=== PATIENT | female | born 1940 | race Caucasian/White ===

== ENCOUNTER → 2018-02-26 16:12 | Outpatient (CLI) | payer MEDICARE, SELFPAY ==
[2018-02-26 16:58] LABS: Add Manual Diff / Slide Review NO; Basophils Percent Auto 0.3 % (0-2); Eosinophils Percent Auto 1.3 % (2-4); Hematocrit 40.5 % (36-46); Lymphocytes Percent Auto 31.5 % (25-40); Mean Corpuscular HGB Conc 34.7 % (30-36); Mean Corpuscular Hemoglobin 33.1 PG (26-34); Mean Corpuscular Volume 95.2 fL (80-100); Neutrophils Absolute Auto 2800 /uL (3000-5900); Neutrophils Percent Auto 59.9 % (50-75); Platelet Count 236 X10^3/uL (150-400); Red Blood Cell Count 4.25 X10^6/uL (4.0-5.2); Red Cell Distribution Width 12.3 % (11.6-14.8); White Blood Cell Count 4.7 X10^3/uL (4.5-11.0)
[2018-02-26 17:25] LABS: Alanine Aminotransferase 34 IU/L (9-52); Albumin 4.2 g/dL (3.5-5.0); Albumin Globulin Ratio 1.6 (1.0-2.8); Alkaline Phosphatase 67 U/L (38-126); Aspartate Aminotransferase 30 IU/L (14-36); Bilirubin Total 0.3 mg/dL (0.2-1.3); Blood Urea Nitrogen 13 mg/dL (7-17); Calcium 9.5 mg/dL (8.4-10.2); Carbon Dioxide 32 mmol/L (22-32); Chloride 98 mmol/L (98-107); Estimated Glomerular Filt Rate > 60.0 mL/min (>60); Globulin 2.7 g/dL (1.7-4.1); Glucose 107 mg/dL (80-110); HEMOLYSIS 18 (0-50); Potassium 3.8 mmol/L (3.4-5.1); Sodium 140 mmol/L (137-145); Total Protein 6.9 g/dL (6.3-8.2)
[2018-02-26 17:26] LABS: C-Reactive Protein Quant < 0.5 mg/dL (<1.0)
[2018-02-26 17:36] LABS: Free T4, Direct Thyroxine 0.95 ng/dL (0.78-2.19)
[2018-02-26 17:50] LABS: Thyroid Stimulating Hormone 2.48 uIU/mL (0.47-4.68)
[2018-02-26 18:26] LABS: Erythrocyte Sedimentation Rate 6 MM/HR (0-20)
== END ==
PROVIDERS: Family Provider Internal Medicine; PCP Internal Medicine; Visit Provider Internal Medicine
DX: E03.9 Hypothyroidism, unspecified (principal); R53.1 Weakness
CPT/HCPCS: 36415; 80053; 84439; 84443; 85025; 85651; 86140

== ENCOUNTER → 2018-03-04 08:09 | Outpatient (CLI) | payer MEDICARE, SELFPAY ==
--- NOTE | 2018-03-04 08:12 | DI.MRI.S_ITS ---
PROCEDURE: MR STROKE Pre- and post-contrast brain MRI, non-contrast brain MR angiogram, pre- and postcontrast neck MR angiogram INDICATIONS: TRANSIENT ISCHEMIC CEREBRAL ATTACK/WEAKNESS TECHNIQUE: Brain: Noncontrast axial T1 spin echo, axial T2 fast spin echo, sagittal and axial FLAIR, coronal T2 fast spin echo, axial gradient echo, axial diffusion and ADC through the brain. After the administration of contrast, axial 3D VIBE of the cranial vasculature and brain. Brain MRA: Non-contrast 3-D time of flight MR angiogram, with multiple onrmsky-atdhidskr-uxopmhwkap (MIP) reformats performed. Neck MRA: Axial and sagittal TruFISP through the neck. Coronal dynamic MR angiogram during administration of contrast in the arterial and venous phases, with 3-dimenstional rcjgxyv-uucnjklgg-dvzkqbkjeu (MIP) reformats constructed from subtraction images. COMPARISON: [facility], CT, HEAD WITHOUT CONTRAST, 03/22/2014, 8:17. [facility], US, CAROTID ARTERY DOPPLER BILAT, 03/22/2014, 8:32. [facility], MR, ANGIO HEAD WITHOUT CONTRAST, 06/05/2014, 14:30. [facility], MR, BRAIN WITHOUT CONTRAST, 06/05/2014, 14:45. FINDINGS: Image quality: Limited by patient motion. BRAIN: CSF spaces: Ventricles are normal in size and shape. Basal cisterns are patent. No extra-axial fluid collections. Brain: No intracranial bleeds or mass effects. Dooley-white matter interface is normal. Diffusion weighted images show no acute ischemic insults. Prominent perivascular spaces noted in the base of the putamen bilaterally. Mild, diffuse prominence of CSF space noted. Prominence of the ventricular system slightly out of proportion to prominence of the sulci which could be due to central volume loss versus normal pressure hydrocephalus. Punctate and confluent areas of increased T2 signal noted in the periventricular and subcortical white matter tracts compatible with chronic microvascular ischemic changes. Numerous, punctate foci of GRE weighted hypointensity noted in the parietal lobes, the occipital lobes, temporal lobes and the yves (right greater than left) compatible with chronic petechial hemorrhage likely secondary to either hypertensive micro-bleeds or amyloid angiopathy. Brainstem appears normal. Normal intravascular flow voids are present. No abnormal intracranial enhancement. Skull and face: Calvarial marrow signal is normal. Orbits appear normal. Sinuses: Mild mucosal thickening noted in the right sphenoid sinus. Minimal fluid signal noted in the left mastoids. Right mastoids are clear.. BRAIN MR ANGIOGRAM: Anterior circulation: Intracranial internal carotid arteries are normal in size and enhancement. The flow within the paired anterior cerebral arteries is normal and symmetric. The flow within the middle cerebral arteries is normal and symmetric. The anterior communicating artery is seen. No stenoses, occlusions, or aneurysms. Posterior circulation: The visualized portions of the vertebral arteries demonstrate normal caliber, and join to form a normal appearing basilar artery. The flow within the posterior cerebral arteries is normal and symmetric. No stenoses, occlusions, or aneurysms. NECK MR ANGIOGRAM: Carotids: Great vessels demonstrate a conventional anatomy as they arise from the aortic arch. The origins of the common carotid arteries appear patent. The calibers and courses of both common carotid arteries are normal. The bifurcation regions appear normal bilaterally. The internal carotid arteries demonstrate normal course and caliber. Posterior circulation: The origins of the vertebral arteries appear patent. More superior portions of both vertebral arteries demonstrate normal course and caliber, and join to form a normal appearing basilar artery. Miscellaneous: Subclavian arteries appear patent. Pre-contrast images through the neck show no soft tissue abnormalities. IMPRESSION: BRAIN MRI: 1. No acute intracranial disease process. 2. No areas of acute or chronic infarction. 3. Multiple punctate GRE weighted hypointensities in the cerebral hemispheres, right greater than left and in the yves concerning for chronic petechial hemorrhages likely related hypertension mitral bleeds or cerebral amyloid angiopathy. Please correlate with clinical data. 4. Ventriculomegaly was related to central volume loss versus normal pressure hydrocephalus. Please correlate clinically. 5. Moderate periventricular and subcortical white matter chronic microvascular ischemic changes. BRAIN MR ANGIOGRAM: Negative examination. NECK MR ANGIOGRAM: Negative examination. Dictated by: Camila Taveras MD, PhD on 03/04/2018 at 10:25 Approved by: Camila Taveras MD, PhD on 03/04/2018 at 10:40
== END ==
PROVIDERS: Family Provider Internal Medicine; PCP Internal Medicine; Visit Provider Internal Medicine
DX: G45.9 Transient cerebral ischemic attack, unspecified (principal); R53.1 Weakness; G93.89 Other specified disorders of brain
CPT/HCPCS: 70553; A9579

== ENCOUNTER → 2018-05-11 08:36 | Outpatient (CLI) | payer MEDICARE, SELFPAY ==
[2018-05-11 11:46] LABS: Vitamin B12 995 pg/mL (239-931)
[2018-05-17 15:43] LABS: Rapid Plasma Reagin NON REACTIVE
== END ==
PROVIDERS: Family Provider Internal Medicine; PCP Internal Medicine; Visit Provider Specialist
DX: F03.90 Unspecified dementia, unspecified severity, without behavioral disturbance, psychotic disturbance, mood disturbance, and anxiety (principal)
CPT/HCPCS: 36415; 82607; 86592

== ENCOUNTER → 2018-07-20 09:18 | Outpatient (CLI) | payer MEDICARE, SELFPAY ==
[2018-07-20 11:24] LABS: Erythrocyte Sedimentation Rate 7 MM/HR (0-20)
[2018-07-20 12:39] LABS: Vitamin B12 913 pg/mL (239-931)
[2018-07-22 13:05] LABS: RPR Screen Nonreactive (Nonreactive)
== END ==
PROVIDERS: Family Provider Internal Medicine; PCP Internal Medicine; Visit Provider Specialist
DX: F03.90 Unspecified dementia, unspecified severity, without behavioral disturbance, psychotic disturbance, mood disturbance, and anxiety (principal)
CPT/HCPCS: 36415; 82607; 85651; 86592

== ENCOUNTER → 2018-11-16 18:05 | Outpatient (CLI) | payer MEDICARE, SELFPAY ==
--- NOTE | 2018-11-16 | DI.MRI.S_ITS ---
PROCEDURE: MR LUMBAR SPINE WO CON INDICATIONS: DEMENTIA SPINAL CORD INJURY TECHNIQUE: Noncontrast sagittal T1 spin echo and T2 fast echo, sagittal STIR, axial T1 and T2 fast spin echo through the lumbar spine. In cases with scoliosis, additional coronal T2 fast spin echo may be performed. COMPARISON: None. FINDINGS: Image quality: Excellent. Alignment and Curvature: There is a mild to moderate degree of abnormal bony alignment, associated with ligamentous laxity related to discogenic reduction and facet osteoarthritis. There is mild grade 1 retrolisthesis of L1 on L2 and mild to moderate such retrolisthesis of L2 on L3. Mild L3 on L4 retrolisthesis also is present. Bone Marrow: Marrow is of normal overall signal. No acute vertebral body compression fractures. Spinal Cord: Conus medullaris terminates at the L1 level. Visualized cord demonstrates normal signal and size. Paraspinous Soft Tissues: No paravertebral masses. T12-L1: Mild to moderate degenerative disc height reduction, with a posterior broad-based disc bulge that produces mild effacement of the anterior CSF within the thecal sac, but does not distort the adjacent cord significantly. This disc bulge is slightly greater on the left than the right with a small degree of left foraminal stenosis. A definite impingement on the course of the left T12 nerve root is not found, however. L1-L2: Moderate degenerative disc height reduction, small posterior disc bulge. This transverse disc bulge effaces CSF only to a slight degree along the anterior spinal canal, and significant spinal stenosis is not associated. Facet osteoarthritis is greater on the left than the right and there is mild left and minimal right foraminal stenosis with potential for slight impingement on the course of the left L1 nerve root. Mild retrolisthesis of L1 on L2, Grade I, is associated. L2-L3: Degenerative disc disease at this level is moderately severe with moderate grade 1 retrolisthesis of L2 on L3. Facet osteoarthritis is moderately severe at this level, slightly greater on the left than the right, and there is moderate bilateral foraminal stenosis slightly greater on the left, with likelihood of bilateral L2 left greater than right nerve root impingement. Mild to moderate concentric spinal stenosis is associated. L3-L4: Moderately severe degenerative disc disease with a broad-based posterior transverse disc bulge. There is severe facet osteoarthritis is present, in addition to ligamentum flavum hypertrophy. This results in concentric severe spinal stenosis grade bilateral severe foraminal stenosis also is present with symmetric impingement on the course of the L3 nerve roots equally. L4-L5: Mild degenerative disc height reduction, slight posterior broad-based disc bulge. Moderately severe facet osteoarthritis, mild to moderate ligamentum flavum hypertrophy. Mild to moderate foraminal stenosis can be seen, right slightly greater than left, with potential for impingement on the course of the L4 nerve roots., L5-S1: Moderately severe degenerative disc disease, small posterior broad-based disc bulge. Moderately severe facet osteoarthritis, slightly greater on the left than the right. There is significant foraminal stenosis, moderately severe bilaterally. Impingement on the course of the L5 nerve roots would be expected. IMPRESSION: Multilevel degenerative disc disease and facet osteoarthritis as discussed in detail by level in the body of report above. The most prominent degree of spinal stenosis is found at L3-4 where severe spinal stenosis and severe bilateral foraminal stenosis can be seen. Disc height reduction and ligamentous laxity from facet osteoarthritis is present in this patient allowing grade 1 retrolisthesis of L1 on L2 and L2 on L3 and to a slight degree L3 on L4. Overall, no disc herniation is seen and no prior trauma is found. Dictated by: Dominguez Del Valle M.D. on 11/17/2018 at 10:21 Approved by: Dominguez Del Valle M.D. on 11/17/2018 at 10:46
--- NOTE | 2018-11-16 | DI.MRI.S_ITS ---
PROCEDURE: MR THORACIC SPINE WO CON INDICATIONS: DEMENTIA. SPINAL CORD INJURY TECHNIQUE: Noncontrast sagittal T1 spine echo and T2 fast spin echo, sagittal STIR, axial T1 and T2 fast spin echo through the thoracic spine. COMPARISON: [facility], MR, C-SPINE WITHOUT CONTRAST, 04/30/2015, 16:53. [facility], MR, BRAIN WITHOUT CONTRAST, 06/05/2014, 14:45. [facility], CT, HEAD WITHOUT CONTRAST, 03/22/2014, 8:17. [facility], CR, L-SPINE 2-3 VIEWS, 03/29/2013, 10:24. FINDINGS: Image quality: / Alignment and Curvature: There is normal bony alignment. Bone Marrow: Marrow is of normal overall signal. No acute vertebral body compression fractures. Spinal Cord: Visualized spinal cord is normal in size and signal. Along the thoracic spine there is mild degenerative disc disease, with only small posterior transverse disc bulges, and impingement on the adjacent cervical cord. The degenerative disc bulging is most prominent at T12-L1, left greater than right, where mild left-sided foraminal stenosis is associated. Paraspinous Soft Tissues: No paravertebral masses. Miscellaneous: On axial images, central canal and foramina appear widely patent at all scanned levels. IMPRESSION: A focus of spinal cord injury is not seen. 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 Mild degenerative disc disease along the thoracic spine, most prominent at T12-L1, left greater than right, with potential for mild impingement on the course of the T12 nerve root on the left. No definite acute disease. Dictated by: Dominguez Del Valle M.D. on 11/17/2018 at 10:11 Approved by: Dominguez Del Valle M.D. on 11/17/2018 at 10:21
--- NOTE | 2018-11-16 18:09 | DI.MRI.S_ITS ---
PROCEDURE: MR CERVICAL SPINE WO CON INDICATIONS: DEMENTIA SPINAL CORD INJURY TECHNIQUE: Noncontrast sagittal T1 spin echo and T2 fast spin echo, sagittal STIR, foraminal oblique sagittal T2 fast spin echo, and axial gradient echo or T2 fast spin echo through the cervical spine. COMPARISON: [facility], , C-SPINE WITHOUT CONTRAST, 04/30/2015, 16:53. FINDINGS: Image quality: Excellent. Alignment and Curvature: Chronic osseous fusion of the C4-C5, C5-C6 vertebral bodies as before. There is associated straightening of the normal cervical lordosis. Bone Marrow: Diffuse endplate degenerative spurring and signal change Spinal Cord: Visualized spinal cord has normal size and signal. No cerebellar tonsillar herniation. Paraspinous Soft Tissues: No paravertebral masses. Prevertebral soft tissues are normal in thickness. C2-C3: Normal appearance. C3-C4: Mild canal narrowing. Moderate left and right foraminal stenoses although no definite interval change. C4-C5: No high-grade residual canal stenosis. Mild left and right foraminal narrowing. C5-C6: No residual high-grade canal stenosis. Mild to moderate right and left foraminal stenoses which is slightly progressed on both sides C6-C7: Mild/moderate unchanged central canal narrowing. Severe bilateral foraminal stenoses, which is probably unchanged although less well-visualized compared to prior study. C7-T1: Normal appearance. 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 No residual high-grade canal stenosis. [id number] unchanged C6-C7 canal narrowing Mild to moderate bilateral foraminal narrowing at C5-C6 which appears progressed since prior study. Severe bilateral C6-C7 foraminal stenoses probably unchanged although not well evaluated. Unchanged moderate bilateral C3-C4 foraminal stenoses. Dictated by: Sher Magallon M.D. on 11/17/2018 at 13:57 Approved by: Sher Magallon M.D. on 11/17/2018 at 14:06
== END ==
PROVIDERS: Family Provider Internal Medicine; PCP Internal Medicine; Visit Provider Internal Medicine Endocrinology, Diabetes & Metabolism
DX: M54.5 Low back pain (principal); G95.89 Other specified diseases of spinal cord; F03.90 Unspecified dementia, unspecified severity, without behavioral disturbance, psychotic disturbance, mood disturbance, and anxiety; M51.34 Other intervertebral disc degeneration, thoracic region; M51.36 Other intervertebral disc degeneration, lumbar region; M51.37 Other intervertebral disc degeneration, lumbosacral region; M48.02 Spinal stenosis, cervical region; M48.04 Spinal stenosis, thoracic region; M48.061 Spinal stenosis, lumbar region without neurogenic claudication; M48.07 Spinal stenosis, lumbosacral region; M47.816 Spondylosis without myelopathy or radiculopathy, lumbar region; M47.817 Spondylosis without myelopathy or radiculopathy, lumbosacral region; M43.22 Fusion of spine, cervical region
CPT/HCPCS: 72141; 72146; 72148

== ENCOUNTER 2019-03-25 13:24 | Outpatient (RCR) | payer MEDICARE, SELFPAY ==
--- NOTE | 2019-03-25 14:30 | PT.OPPOC ---
Current Diagnoses Benign paroxysmal vertigo, right ear (03/25/19) Unspecified abnormalities of gait and mobility (03/25/19) Repeated falls (03/25/19) Dizziness and giddiness (03/25/19) History of falling (03/25/19) Provider Visit Care Team Role Provider Type Aleks Fraser MD Primary Care Provider Physician Specialty: Internal Medicine Address: [address] [place] [address], [id number] Email: [email or web address] Mikey Sue MD Attending Provider Non-Staff Specialty: Neurology Address: [address] [place] [address], [id number] Email: Plan Of Care PT-OP-T Assessment and Plan Start: 03/28/19 09:33 Freq: Status: Active Protocol: Document 03/25/19 13:45 DCW (Rec: 03/28/19 10:00 DCW [id number]) Physical Therapy Assessment Rehab Potential Rehabilitation Potential Good Evaluation Complexity Number of Personal Factors/Comorbidities 1-2 Number of Body Systems Impaired 4 or More Clinical Presentation at Evaluation Unstable Impairments Impairments Activity Tolerance Balance Coordination Functional Mobility Vestibular Other Concerns Fall Risk Yes, per falls history Barriers to Rehabilitation Dementia, possible Dx of Hydrocephaly, inablilty of pt to keep eyes open during vertigo for DDx Goals One Impairment Pt experiences vertigo with position changes in bed Short Term Goal (STG) Pt to change positions in bed for one week without any complaints of vertigo or dizziness STG Duration 04/24/19 Assessment Summary Assessment During right [place]-Hallpike test , pt complained of vertigo lasting approximately 5 seconds, however was unwilling or unable to open her eyes during the spinning, making proper diagnosis difficult. Her symptoms are most likely consistent with diagnosis of right-sided posterior canal BPPV, canalithiasis-type. Pt was treated with a right-sided Yannick maneuver. Pt complained of symptoms in the first and third position, which is normally indicative of a successful treatment. Pt and her were educated on BPPV and expectations for treatment. Pt also has very obvious balance and gait deficits, and when she was walking back to the treatment room from the waiting area, had a significant forward lean which caused her to stop multiple times to try to stand up straighter before she tipped over. Patient and were also informed of possible balance testing and retraining that Physical Therapy would be able to work on, however they are unsure at this time if they are interested, and seem to be convinced that all her problems are from her possible hydrocephaly, and would prefer to have that addressed before committing to balance rehabilitation. Pt to return in ~1 week for a follow-up appointment, and intermittently afterward as indicated for treatment of BPPV. Physical Therapy Plan Frequency and Duration Frequency of Treatment 1x/Week Duration of Treatment 6 weeks Plan of Care Start Date 03/25/19 Plan of Care End Date 05/06/19 Therapeutic Interventions Therapeutic Interventions Balance Training Canalithic Repositioning Neuromuscular Re-education Vestibular Rehabilitation Next Visit Focus/Plan Next Note Type Treatment Note Next Visit Plan Positional retesting, CRM as indicated, possible balance testing and training Plan of Care Dates Plan of Care Start Date 03/25/19 Plan of Care End Date 05/06/19 Please Sign and Return: I have reviewed this Plan of Care and certify that the skilled therapy services above are required to meet the patient?s needs. Physician Signature Date Printed Name and Credentials Clinical Instructor Signature Printed Name and Credentials
--- NOTE | 2019-03-25 14:30 | PT.OIE ---
Current Diagnoses Benign paroxysmal vertigo, right ear (03/25/19) Unspecified abnormalities of gait and mobility (03/25/19) Repeated falls (03/25/19) Dizziness and giddiness (03/25/19) History of falling (03/25/19) Past Medical History (Last Reviewed 04/22/18 @ 17:45 by Aleks Fraser MD) Cervical spine disease (Chronic) Chronic back pain (Chronic) Hyperlipidemia (Chronic 03/11/12) Osteoporosis (Chronic 03/29/13) Trigeminal neuralgia (Chronic 03/29/13) Acquired hypothyroidism (Chronic 05/12/16) Abnormal gait (Chronic 05/12/16) Past Surgical History (Last Reviewed 04/22/18 @ 17:45 by Aleks Fraser MD) Status post hysterectomy (~1969) History of bilateral salpingo-oophorectomy (BSO) (~01/2006) Status post appendectomy History of bladder suspension procedure History of spinal fusion Anesthesia (Resolved) Provider Visit Care Team Role Provider Type Aleks Fraser MD Primary Care Provider Physician Specialty: Internal Medicine Address: [address] [place] [address], [id number] Email: [email or web address] Mikey Sue MD Attending Provider Non-Staff Specialty: Neurology Address: [address] [place] [address], [id number] Email: Physical Therapy Initial Evaluation PT-OP-A Visit Information Start: 03/28/19 09:33 Freq: Status: Active Protocol: Document 03/25/19 13:45 DCW (Rec: 03/28/19 10:00 [facility] [id number]) Out-Patient Physical Therapy Visit Information Visit Information Visit Type Initial Evaluation Visit Start Time 13:45 Visit Stop Time 14:30 Total Visit Minutes 45 Visit Number 1 Number of EDGE RUNNER Visits 0 Evaluation Information Evaluation Date 03/25/19 PT-OP-B Current Condition Start: 03/28/19 09:33 Freq: Status: Active Protocol: Document 03/25/19 13:45 DCW (Rec: 03/28/19 10:00 DC [id number]) Current Condition History of Current Condition Onset Date one year Current Complaints vertigo/dizziness when sitting up or lying down in bed History of Current Condition Pt is a 78 year old female complaining of a one year history of motion-induced vertigo, as well as generalized decline of functional gait and balance. Pt reports vertiginous episodes last seconds. Symptoms are provoked by sitting up or lying down in bed. Pt denies recent hearing changes, although notes she has recently acquired hearing aides, and also denies tinnitus, diplopia, or dysarthria. Pt has also recently been diagnosed with the beginning stages of dementia, and per medical notes in her chart, may be suffering from hyrdocephalus, although that is unclear at this time. Pt has been having multiple falls, even with using her walker. Pt reports symptoms are waxing/waning in nature. Pt denies hx of HTN, diabetes, arrhythmia, head trauma, seizure, back/neck problems, CVA, or excessive smoking or drinking. Treatment Goals Patient/Caregiver Goals Eliminate position-dependent vertigo and improve balance Prior Functional Status Baseline Function- ADL's Modified Independent Baseline Function- Mobility Modified Independent Current Functional Impairments (Reported) Functional Limitations- ADL's Rotational vertigo with position changes in bed Functional Limitations- Mobility/Gait Multiple falls PT-OP-C Subjective Start: 03/28/19 09:33 Freq: Status: Active Protocol: Document 03/25/19 13:45 DCW (Rec: 03/28/19 10:00 DCW [id number]) OP-PT Subjective Patient Comments Patient Comments Pt reports symptoms seems to come and go Patient Reported Progress Same Patient Questionnaires ABC- Activity Specific Balance Confidence Scale ABC Score 71.25% ABC Functional Impairment 20 to <40% Impaired (Score 61- 80) Dizziness Handicap Inventory DHI Score 62% DHI Functional Impairment 60 to 79% Impaired (Score 60- 79) PT-OP-O Vestibular Start: 03/28/19 09:33 Freq: Status: Active Protocol: Document 03/25/19 13:45 DCW (Rec: 03/28/19 10:00 PAW [id number]) Vestibular Assessment Screening Tests Vestibular Artery Screen Negative Sharp-Shaunna Test Negative Auditory Tests Corcoran Test Negative Rinne Test Negative Air Conduction Results Equal Visual Testing Smooth Pursuits Horizontal WNL Smooth Pursuits Vertical WNL Saccades Horizontal WNL Gaze Evoked Nystagmus With Fixation Negative Gaze Evoked Nystagmus Without Fixation Negative Heave Test Negative Thrust Head Negative Positional Testing Robert-Hallpike Positive Right Negative Left Rolling Test Negative Left Negative Right Supine to Sit Negative Sit to Supine Negative Comments Vestibular Comments Right Hallpike likely negative , pt complained of dizziness, however squeezed eyes tight during any potential nystagmus , limiting ability of therapist to properly diagnose . PT-OP-Q Treatments Start: 03/28/19 09:33 Freq: Status: Active Protocol: Document 03/25/19 13:45 DCW (Rec: 03/28/19 10:00 DCW [id number]) Canalithic Repositioning BPPV Treatment Yannick Affected Canal(s) Right posterior? Reps x2 PT-OP-T Assessment and Plan Start: 03/28/19 09:33 Freq: Status: Active Protocol: Document 03/25/19 13:45 DCW (Rec: 03/28/19 10:00 DCW [id number]) Physical Therapy Assessment Rehab Potential Rehabilitation Potential Good Evaluation Complexity Number of Personal Factors/Comorbidities 1-2 Number of Body Systems Impaired 4 or More Clinical Presentation at Evaluation Unstable Impairments Impairments Activity Tolerance Balance Coordination Functional Mobility Vestibular Other Concerns Fall Risk Yes, per falls history Barriers to Rehabilitation Dementia, possible Dx of Hydrocephaly, inability of pt to keep eyes open during vertigo for DDx Goals One Impairment Pt experiences vertigo with position changes in bed Short Term Goal (STG) Pt to change positions in bed for one week without any complaints of vertigo or dizziness STG Duration 04/24/19 Assessment Summary Assessment During right [place]-Hallpike test , pt complained of vertigo lasting approximately 5 seconds, however was unwilling or unable to open her eyes during the spinning, making proper diagnosis difficult. Her symptoms are most likely consistent with diagnosis of right-sided posterior canal BPPV, canalithiasis-type. Pt was treated with a right-sided Yannick maneuver. Pt complained of symptoms in the first and third position, which is normally indicative of a successful treatment. Pt and her were educated on BPPV and expectations for treatment. Pt also has very obvious balance and gait deficits, and when she was walking back to the treatment room from the waiting area, had a significant forward lean which caused her to stop multiple times to try to stand up straighter before she tipped over. Patient and were also informed of possible balance testing and retraining that Physical Therapy would be able to work on, however they are unsure at this time if they are interested, and seem to be convinced that all her problems are from her possible hydrocephaly, and would prefer to have that addressed before committing to balance rehabilitation. Pt to return in ~1 week for a follow-up appointment, and intermittently afterward as indicated for treatment of BPPV. Physical Therapy Plan Frequency and Duration Frequency of Treatment 1x/Week Duration of Treatment 6 weeks Plan of Care Start Date 03/25/19 Plan of Care End Date 05/06/19 Therapeutic Interventions Therapeutic Interventions Balance Training Canalithic Repositioning Neuromuscular Re-education Vestibular Rehabilitation Next Visit Focus/Plan Next Note Type Treatment Note Next Visit Plan Positional retesting, CRM as indicated, possible balance testing and training
--- NOTE | 2019-04-04 10:04 | PT-OP ANOTE ---
Pt's phoned the clinic and left a voicemail, stating that pt has been worse since her evaluation, with much worsened dizziness and frequent headaches. Phone call was returned, and therapist and pt's discussed pt's current condition. Apparently, pt also suffered a fall recently, cutting her leg on a shovel, and they are both unsure if they would like to continue therapy. Therapist explained that although pt's symptoms were suggestive of BPPV, testing was somewhat inconclusive due to pt's inability to keep her eyes open, and with worsening symptoms, it would be gregory to return to her PCP, due to pt's concerns of hydrocephaly.
--- NOTE | 2019-05-18 16:13 | PT.OPDS ---
Current Diagnoses Benign paroxysmal vertigo, right ear (03/25/19) Unspecified abnormalities of gait and mobility (03/25/19) Repeated falls (03/25/19) History of falling (03/25/19) Provider Visit Care Team Role Provider Type Aleks Fraser MD Primary Care Provider Physician Specialty: Internal Medicine Address: [address] [place] [address], [facility] [address], [place], [address] Email: [email or web address] Mikey Sue MD Attending Provider Non-Staff Specialty: Neurology Address: [address] [place] [address], [id number] Email: Visit Number Visit Number 1 Discharge Summary PT-OP-B Current Condition Start: 03/28/19 09:33 Freq: Status: Active Protocol: Document 03/25/19 13:45 DCW (Rec: 03/28/19 10:00 DCW [id number]) Current Condition History of Current Condition Onset Date one year Current Complaints vertigo/dizziness when sitting up or lying down in bed History of Current Condition Pt is a 78 year old female complaining of a one year history of motion-induced vertigo, as well as generalized decline of functional gait and balance. Pt reports vertiginous episodes last seconds. Symptoms are provoked by sitting up or lying down in bed. Pt denies recent hearing changes, although notes she has recently acquired hearing aides, and also denies tinnitus, diplopia, or dysarthria. Pt has also recently been diagnosed with the beginning stages of dementia, and per medical notes in her chart, may be suffering from hyrdocephalus, although that is unclear at this time. Pt has been having multiple falls, even with using her walker. Pt reports symptoms are waxing/waning in nature. Pt denies hx of HTN, diabetes, arrhythmia, head trauma, seizure, back/neck problems, CVA, or excessive smoking or drinking. Treatment Goals Patient/Caregiver Goals Eliminate position-dependent vertigo and improve balance Prior Functional Status Baseline Function- ADL's Modified Independent Baseline Function- Mobility Modified Independent Current Functional Impairments (Reported) Functional Limitations- ADL's Rotational vertigo with position changes in bed Functional Limitations- Mobility/Gait Multiple falls PT-OP-C Subjective Start: 03/28/19 09:33 Freq: Status: Active Protocol: Document 03/25/19 13:45 DCW (Rec: 03/28/19 10:00 DCW [id number]) OP-PT Subjective Patient Comments Patient Comments Pt reports symptoms seems to come and go Patient Reported Progress Same Patient Questionnaires ABC- Activity Specific Balance Confidence Scale ABC Score 71.25% ABC Functional Impairment 20 to <40% Impaired (Score 61- 80) Dizziness Handicap Inventory DHI Score 62% DHI Functional Impairment 60 to 79% Impaired (Score 60- 79) PT-OP-O Vestibular Start: 03/28/19 09:33 Freq: Status: Active Protocol: Document 03/25/19 13:45 DCW (Rec: 03/28/19 10:00 DCW [id number]) Vestibular Assessment Screening Tests Vestibular Artery Screen Negative Sharp-Shaunna Test Negative Auditory Tests Corcoran Test Negative Rinne Test Negative Air Conduction Results Equal Visual Testing Smooth Pursuits Horizontal WNL Smooth Pursuits Vertical WNL Saccades Horizontal WNL Gaze Evoked Nystagmus With Fixation Negative Gaze Evoked Nystagmus Without Fixation Negative Heave Test Negative Thrust Head Negative Positional Testing Drifting-Hallpike Positive Right Negative Left Rolling Test Negative Left Negative Right Supine to Sit Negative Sit to Supine Negative Comments Vestibular Comments Right Hallpike likely negative , pt complained of dizziness, however squeezed eyes tight during any potential nystagmus , limiting ability of therapist to properly diagnose . PT-OP-T Assessment and Plan Start: 03/28/19 09:33 Freq: Status: Active Protocol: Document 05/18/19 16:11 DCW (Rec: 05/18/19 16:13 DCW [id number]) Physical Therapy Assessment Assessment Summary Assessment Per Admin note on 04/04/19: Pt' s phoned the clinic and left a voicemail, stating that pt has been worse since her evaluation, with much worsened dizziness and frequent headaches. Phone call was returned, and therapist and pt's discussed pt' s current condition. Apparently, pt also suffered a fall recently, cutting her leg on a shovel, and they are both unsure if they would like to continue therapy. Therapist explained that although pt's symptoms were suggestive of BPPV, testing was somewhat inconclusive due to pt's inability to keep her eyes open, and with worsening symptoms, it would be gregory to return to her PCP, due to pt's concerns of hydrocephaly. Since this time, pt has not scheduled any appointments, and will be discharge from skilled therapy. Pt will require a new referral in order to return to vestibular therapy. Physical Therapy Plan Discharge Physical Therapy Discharge Reasons No Longer Attending PT Next Visit Focus/Plan Next Note Type Discharge Summary
== END 2019-05-20 09:40 | disposition home or self-care (01) ==
LOC: PHYS 13:24
PROVIDERS: PCP Internal Medicine; Visit Provider Specialist
DX: R26.9 Unspecified abnormalities of gait and mobility (principal); H81.11 Benign paroxysmal vertigo, right ear; R29.6 Repeated falls; Z91.81 History of falling
CPT/HCPCS: 95992; 97162

== ENCOUNTER 2019-04-02 15:07 | Emergency (ER) | payer MEDICARE, SELFPAY ==
[2019-04-02 15:22] VITALS: BP 130/87; PULSE 71; RESP 20; TEMP 37.1; O2SAT 98; BMI 24.0
[2019-04-02] MEDS: LIDOCAINE/PRILOCAINE 5 GM TOP (18:40)
[2019-04-02] MEDS: TET,DIPH,PERTUSS(ACELL),VAC/PF 0.5 ML SYRINGE IM (18:40)
--- NOTE | 2019-04-02 18:46 | ED_ITS ---
HPI - Wound/Laceration <BAIMAEL De La Cruz - Last Filed: 04/02/19 19:32> General Chief Complaint: Wound/Laceration Stated Complaint: fall, wound to lower right leg Time Seen by Provider: 04/02/19 17:31 Source: patient and family Mode of arrival: ambulatory Limitations: no limitations History of Present Illness HPI narrative: The patient is a 78-year-old female with severe dementia who p resents with her for chief complaint of laceration to her right leg. It is her right lower leg. Tetanus is unknown. Patient's states that she stepped hit accidentally cut the back of her leg with a shovel. She states she has full range of motion. Her tried to clean it out, but decided that the wound was too big to take care of at home. Related Data Home Medications Medication Instructions Recorded Confirmed LEVOTHYROXINE SODIUM (Synthroid) 75 mcg PO Q DAY #0 04/28/10 04/22/18 [FLAXSEED OIL] Q DAY #0 04/28/10 04/22/18 VITAMIN B COMPLEX ([id number]) 1 cap PO Q DAY #0 03/11/12 04/22/18 ascorbic acid (vitamin C) 500 mg PO QDAY #90 tab 05/12/16 04/22/18 calcium carbonate-vitamin D3 1 tab QDAY #0 tab 05/12/16 04/22/18 [Oyster Shell Calcium-Vit D3] ginkgo biloba 120 mg PO #0 05/12/16 04/22/18 hydrocodone-acetaminophen [Mariposa] 1 tab PO Q6HP PRN #0 05/12/16 04/22/18 peg 400-propylene glycol (PF) 1 ea OP #0 05/12/16 04/22/18 [Systane (PF)] Previous Rx's Medication Instructions Recorded carbamazepine 200 mg PO BID #180 tab 05/15/16 Allergies Allergy/AdvReac Type Severity Reaction Status Date / Time adhesive tape AdvReac Mild Rash Verified 04/22/18 15:22 Review of Systems <ABIMAEL De La Cruz - Last Filed: 04/02/19 19:32> Review of Systems GENERAL: Denies chills, fatigue, malaise, fever, sweats. HEENT: Denies sinus pain, ear pain, sore throat, difficulty swallowing, dizziness. RESPIRATORY: Denies dyspnea, cough, wheezing, hemoptysis, sputum. CARDIOVASCULAR: Denies chest pain, palpitations, orthopnea, edema, GASTROINTESTINAL: Denies nausea, vomiting, abdominal pain, diarrhea, constipation, melena. : Denies dysuria, frequency, incontinence, hematuria, urinary retention. MUSCULOSKELETAL: See HPI SKIN: See HPI NEUROLOGIC: Denies weakness, headache, numbness, change in speech, confusion, seizures, incoordination. PSYCHIATRIC: No concerning psychosocial issues. 12 point review of systems is negative except for those stated above PFS <ABIMAEL De La Cruz - Last Filed: 04/02/19 19:32> Medical History Cervical spine disease (Chronic) Chronic back pain (Chronic) Hyperlipidemia (Chronic 03/11/12) Osteoporosis (Chronic 03/29/13) Trigeminal neuralgia (Chronic 03/29/13) Acquired hypothyroidism (Chronic 05/12/16) Abnormal gait (Chronic 05/12/16) Surgical History Status post hysterectomy (~1969) History of bilateral salpingo-oophorectomy (BSO) (~01/2006) Status post appendectomy History of bladder suspension procedure History of spinal fusion Anesthesia (Resolved) Family History Father Familial Alzheimer's disease Mother Family history of esophageal carcinoma Social History marital status: number of children: 2 household members: spouse lives independently: Yes caregiver/support person: No housing: house pets and animals: No education level: college occupational status: other (Retired) 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[employer]: [employer] travel history: recent ([place]) leisure activities: other (Gardening, sewing, traveling, grandchildren.) Smoking Status: Never smoker Tobacco: How many years used: 0 quit status: quit date established (Never started) second hand exposure: Yes (When Younger.) alcohol intake: current (Seldom.) substance use type: does not use Family History Father Familial Alzheimer's disease Mother Family history of esophageal carcinoma Social History marital status: number of children: 2 household members: spouse lives independently: Yes caregiver/support person: No housing: house pets and animals: No education level: college occupational status: other (Retired) 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 Normocephalic. No temporal or scalp tenderness. EYES: Pupils equal round and reactive. Extraocular motions intact. No scleral icterus. No injection or drainage. ENT: Nose without bleeding, purulent drainage or septal hematoma. Throat without erythema, tonsillar hypertrophy or exudate. Uvula midline. Airway patent. NECK: Trachea midline. No JVD or lymphadenopathy. Supple, nontender, no meningeal signs. CARDIOVASCULAR: Regular rate and rhythm RESPIRATORY: No cough. No increased respiratory effort. No accessory muscle use. EXTREMITIES: Patient is able to flex and extend right lower leg. Positive pedal pulses. BACK: Nontender without deformity or crepitance. No flank tenderness. NEURO: Alert. Interactive. SKIN: 8 cm skin tear through dermis posterior aspect of right lower leg. Ecchymosis surrounding. No obvious muscle or tendon involvement. No obvious foreign body. Approximately 0.5 cm separation between sides. Initial Vital Signs Initial Vital Signs: Vital Signs Temperature 98.7 F 04/02/19 15:22 Pulse Rate 71 04/02/19 15:22 Respiratory Rate 20 04/02/19 15:22 Blood Pressure 130/87 04/02/19 15:22 Pulse Oximetry 98 04/02/19 15:22 <Raymundo Quezada DO - Last Filed: 04/02/19 23:24> Initial Vital Signs Initial Vital Signs: Vital Signs Temperature 98.7 F 04/02/19 15:22 Pulse Rate 71 04/02/19 15:22 Respiratory Rate 20 04/02/19 15:22 Blood Pressure 130/87 04/02/19 15:22 Pulse Oximetry 98 04/02/19 15:22 Procedures <ABIMAEL De La Cruz - Last Filed: 04/02/19 19:32> Laceration Repair Laceration 1: Site: lower extremity Side (If applicable): left Size (cm): 8 Description: linear and flap Depth: simple, single layer Local Anesthetic: other anesthetic (topical lido) Pre-repair: wound explored, irrigated extensively (sterile water and iodine) and deep structures intact Skin layer closed with: steri-strips Course <ABIMAEL De La Cruz - Last Filed: 04/02/19 19:32> Orders Ordered: Discontinued Medications Diphtheria/Tetanus/Acell Pertussis (Adacel) 0.5 ml IM .ONCE ONE Stop: 04/02/19 17:38 Last Admin: 04/02/19 18:40 Dose: 0.5 ml Lidocaine/Prilocaine (Lidocaine-Prilocaine Cream) 5 gm TOP NOW ONE Stop: 04/02/19 17:38 Last Admin: 04/02/19 18:40 Dose: 5 gm Vital Signs - 8 hr 04/02/19 15:22 Temperature 98.7 F Pulse Rate 71 Respiratory Rate 20 Blood Pressure 130/87 Pulse Oximetry 98 <Raymundo Quezada DO - Last Filed: 04/02/19 23:24> Orders Ordered: Discontinued Medications Diphtheria/Tetanus/Acell Pertussis (Adacel) 0.5 ml IM .ONCE ONE Stop: 04/02/19 17:38 Last Admin: 04/02/19 18:40 Dose: 0.5 ml Lidocaine/Prilocaine (Lidocaine-Prilocaine Cream) 5 gm TOP NOW ONE Stop: 04/02/19 17:38 Last Admin: 04/02/19 18:40 Dose: 5 gm Vital Signs - 8 hr 04/02/19 15:22 Temperature 98.7 F Pulse Rate 71 Respiratory Rate 20 Blood Pressure 130/87 Pulse Oximetry 98 MDM - Wound/Laceration <ABIMAEL De La Cruz - Last Filed: 04/02/19 19:32> MDM Narrative Medical decision making narrative: The patient is a 78-year-old female who presents with laceration to the back of her right leg. I discussed at length w ith her and her patient's x-ray to evaluate for possible foreign body and/or open fracture and they declined. The wound was cleansed with sterile saline and iodine as documented in closed with Steri-Strips as documented due to the fragility of her skin. Discussed at length monitoring for signs and symptoms of infection and encouraged follow-up with PCP in a few days. Discussed going back to the ER for any acute concerns. Discharge Plan Departure Patient Disposition: Home Clinical Impression: Laceration, Acquired hypothyroidism Discharge Date/Time: 04/02/19 19:52 Interventions: ED Discharge Assessment Last Done: 04/02/19 19:51 Instructions: DI for Laceration Repair Steri-Strips, DI for Minor Laceration Activity Restrictions/Additional Instructions: Today we updated your tetanus. Given the fragility of your skin, I closed the wound with Steri-Strips. Please follow up with her primary care provider in the next few days. Please come back to emergency department for any acute concerns. Please use [id number] medications as needed and able For pain. Please monitor your wound for signs and symptoms of infection such as redness swelling and pus. Prescriptions: No Action LEVOTHYROXINE SODIUM (Synthroid) 75 mcg PO Q DAY Qty: 0 RF: 0 [FLAXSEED OIL] Q DAY Qty: 0 RF: 0 VITAMIN B COMPLEX ([id number]) 1 cap PO Q DAY Qty: 0 RF: 0 ascorbic acid (vitamin C) 500 MG tablet 500 mg PO QDAY Qty: 90 RF: 0 calcium carbonate-vitamin D3 [Oyster Shell Calcium-Vit D3] 500 MG/200 IU tablet 1 tab QDAY Qty: 0 RF: 0 ginkgo biloba 120 MG tablet 120 mg PO Qty: 0 RF: 0 peg 400-propylene glycol (PF) [Systane (PF)] 1 EACH dropperette 1 ea OP Qty: 0 RF: 0 hydrocodone-acetaminophen [Mariposa] 5 MG/325 MG tablet 1 tab PO Q6HP PRNQty: 0 RF: 0 carbamazepine 200 MG tablet 200 mg PO BID Qty: 180 RF: 3 Referrals: Aleks Fraser MD [Primary Care Provider] - <Raymundo Quezada DO - Last Filed: 04/02/19 23:24> Cosign ED Attending Tim Attestation: I was available for consultation during this patient's emergency department encounter
== END 2019-04-02 19:52 | disposition home or self-care (01) ==
PROVIDERS: Emergency Provider Nurse Practitioner Family; PCP Internal Medicine
DX: S81.811A Laceration without foreign body, right lower leg, initial encounter (principal); W19.XXXA Unspecified fall, initial encounter; Z23 Encounter for immunization
CPT/HCPCS: 90471; 99283; 90715

== ENCOUNTER → 2019-04-22 09:21 | Outpatient (CLI) | payer MEDICARE, SELFPAY ==
[2019-04-22 09:30] LABS: Bacteria Urine None Seen; RBC Urine None Seen (0-5/HPF)
[2019-04-22 10:13] LABS: Appearance Urine UA CLEAR; Bilirubin Urine UA NEGATIVE (NEGATIVE); Color Urine UA YELLOW; Glucose Urine UA NEGATIVE (Negative); Ketones Urine UA NEGATIVE (NEGATIVE); Leukocyte Esterase Urine UA NEGATIVE (NEGATIVE); Nitrite Urine UA NEGATIVE (Negative); Occult Blood Urine UA TRACE-LYSED (Negative); Protein Urine UA NEGATIVE (Negative); Urobilinogen Urine UA 0.2 E.U./dL (0.2); pH Urine UA 6.5 (4.5-8.0)
[2019-04-22 10:15] LABS: Add Manual Diff / Slide Review NO; Basophils Absolute Auto 0 /uL (0-100); Basophils Percent Auto 0.6 % (0-2); Eosinophils Absolute Auto 100 /uL (0-450); Eosinophils Percent Auto 1.7 % (2-4); Hematocrit 39.7 % (36-46); Hemoglobin 13.4 g/dL (12.0-16.0); Lymphocytes Absolute Auto 1800 /uL (1100-4500); Lymphocytes Percent Auto 35.4 % (25-40); Mean Corpuscular HGB Conc 33.7 % (30-36); Mean Corpuscular Hemoglobin 31.6 PG (26-34); Mean Corpuscular Volume 93.8 fL (80-100); Monocytes Absolute Auto 400 /uL (0-900); Monocytes Percent Auto 7.5 % (3-14); Neutrophils Absolute Auto 2700 /uL (1500-7000); Neutrophils Percent Auto 54.8 % (50-75); Platelet Count 296 X10^3/uL (150-400); Red Blood Cell Count 4.23 X10^6/uL (4.0-5.2); Red Cell Distribution Width 12.5 % (11.6-14.8)
[2019-04-22 10:19] LABS: INR 0.9 (0.9-1.3); Prothrombin Time 10.7 SECONDS (10.1-12.7)
[2019-04-22 10:21] LABS: PTT Partial Thromboplastin Tim 37 SECONDS (26.4-36.2)
[2019-04-22 10:29] LABS: High Sensitivity CRP - Cardiac 2.1 mg/L (1.0-3.0)
[2019-04-22 10:39] LABS: Amorphous Sediment Urine 1+; Culture Indicated Urine Cult Not Indicated; Squamous Epithelial Cell Urine 5-10 /HPF (0-5/HPF); Transitional Epi Cells Urine 1-5/HPF (0-5/HPF); WBC Urine 1-5/HPF (0-5/HPF)
== END ==
PROVIDERS: PCP Internal Medicine; Visit Provider Psychiatry & Neurology Neurology
DX: G91.2 (Idiopathic) normal pressure hydrocephalus (principal); R26.89 Other abnormalities of gait and mobility; N39.41 Urge incontinence; Z01.818 Encounter for other preprocedural examination
CPT/HCPCS: 36415; 81001; 85025; 85610; 85730; 86140

== ENCOUNTER → 2020-05-07 12:13 | Outpatient (CLI) | payer MEDICARE, SELFPAY ==
[2020-05-07 13:11] LABS: Add Manual Diff / Slide Review NO; Basophils Absolute Auto 0 /uL (0-100); Basophils Percent Auto 0.3 % (0-2); Eosinophils Absolute Auto 0 /uL (0-450); Eosinophils Percent Auto 1.1 % (2-4); Hematocrit 40.1 % (36-46); Hemoglobin 13.5 g/dL (12.0-16.0); Lymphocytes Absolute Auto 1600 /uL (1100-4500); Lymphocytes Percent Auto 33.4 % (25-40); Mean Corpuscular HGB Conc 33.6 % (30-36); Mean Corpuscular Hemoglobin 31.8 PG (26-34); Mean Corpuscular Volume 94.6 fL (80-100); Monocytes Absolute Auto 300 /uL (0-900); Monocytes Percent Auto 6.6 % (3-14); Neutrophils Absolute Auto 2700 /uL (1500-7000); Neutrophils Percent Auto 58.6 % (50-75); Platelet Count 223 X10^3/uL (150-400); Red Blood Cell Count 4.24 X10^6/uL (4.0-5.2); Red Cell Distribution Width 13.1 % (11.6-14.8); White Blood Cell Count 4.7 X10^3/uL (4.5-11.0)
[2020-05-07 13:36] LABS: Erythrocyte Sedimentation Rate 9 MM/HR (0-20)
[2020-05-07 13:51] LABS: Alanine Aminotransferase 23 IU/L (<35); Albumin 4.3 g/dL (3.5-5.0); Albumin Globulin Ratio 1.6 (1.0-2.8); Alkaline Phosphatase 87 U/L (38-126); Aspartate Aminotransferase 31 IU/L (14-36); BUN Creatinine Ratio 28.6 (6-22); Bilirubin Total 0.4 mg/dL (0.2-1.3); Blood Urea Nitrogen 16 mg/dL (7-17); Calcium 9.7 mg/dL (8.4-10.2); Carbon Dioxide 31 mmol/L (22-32); Chloride 101 mmol/L (98-107); Estimated Glomerular Filt Rate > 60.0 mL/min (>60); Globulin 2.7 g/dL (1.7-4.1); Glucose 79 mg/dL (80-110); HEMOLYSIS < 15 (0-50); Sodium 139 mmol/L (137-145)
[2020-05-07 14:08] LABS: Free T4, Direct Thyroxine 1.39 ng/dL (0.78-2.19)
[2020-05-07 14:22] LABS: Thyroid Stimulating Hormone 2.11 uIU/mL (0.47-4.68)
== END ==
PROVIDERS: PCP Internal Medicine; Referring Provider Internal Medicine; Visit Provider Internal Medicine
DX: E03.9 Hypothyroidism, unspecified (principal); E78.5 Hyperlipidemia, unspecified; G50.0 Trigeminal neuralgia
CPT/HCPCS: 36415; 80053; 84439; 84443; 85025; 85651

== ENCOUNTER → 2020-05-08 11:58 | Outpatient (CLI) | payer MEDICARE, SELFPAY ==
--- NOTE | 2020-05-08 12:02 | DI.CT.S_ITS ---
PROCEDURE: CT HEAD/BRAIN WO CON INDICATIONS: headache TECHNIQUE: Noncontrast 4.5 mm thick angled axial sections acquired from the foramen magnum to the vertex, with coronal and sagittal reformats. For radiation dose reduction, the following was used: automated exposure control, adjustment of mA and/or kV according to patient size. COMPARISON: [facility], CT, HEAD WITHOUT CONTRAST, 03/22/2014, 8:17. FINDINGS: Image quality: Excellent. CSF spaces: Basal cisterns are patent. No extra-axial fluid collections. The ventricles are symmetric in size and shape. Brain: No intracranial bleeds or masses. There is cerebral volume loss for age, with resultant ventricular and sulcal prominence. Significant interval progression of periventricular and deep white matter chronic small vessel ischemic changes, now moderate. Interval left thalamic lacunar infarction, likely chronic. Prominent bilateral dilated perivascular spaces. There is intracranial internal carotid artery atherosclerosis. Skull and face: Calvarium and visualized facial bones appear intact, without suspicious lesions. Sinuses: Visualized sinuses and mastoids are clear. IMPRESSION: 1. Significant interval progression small vessel ischemic change, now moderate. 2. Interval left thalamic lacunar infarction, likely chronic. 3. No evidence of acute hemorrhage or mass or cortical infarct. Dictated by: Nitin Ahmadi M.D. on 05/08/2020 at 12:21 Approved by: Nitin Ahmadi M.D. on 05/08/2020 at 12:24
== END ==
PROVIDERS: PCP Internal Medicine; Referring Provider Internal Medicine; Visit Provider Internal Medicine
DX: R51 Headache (principal); I65.29 Occlusion and stenosis of unspecified carotid artery
CPT/HCPCS: 70450

== ENCOUNTER 2024-02-23 18:27 | Emergency (ER) | payer MEDICARE, SELFPAY ==
[2024-02-23 18:45] VITALS: BP 141/72; PULSE 99; RESP 16; TEMP 36.6; O2SAT 95
[2024-02-23 18:52] VITALS: PULSE 92; RESP 18; O2SAT 96
--- NOTE | 2024-02-23 19:14 | ED_ITS ---
HPI - Skin/Abscess/Foreign Bdy General Chief complaint: Skin/Abscess/Foreign Body Stated complaint: fall, left leg laceration Time Seen by Provider: 02/23/24 18:37 Source: patient and family Mode of arrival: Wheelchair History of Present Illness HPI narrative: 83-year-old female with history of dementia presents by private vehicle from home for evaluation of left lower extremity injury. Earlier this morning patient was walking and tripped, hitting her leg against a doorframe. Son at bedside denies patient hitting head. Thinks she may be on thinners but isnt' sure, stating it should all be in her chart. Patient was evaluated earlier this morning by fire Department, who dressed her wound and told family that due to the thinness of patient's skin sutures would likely not be needed. As the day progressed patient's leg became swollen and so they presented to the ER for wound care advice. Related Data Home Medications Medication Instructions Recorded Confirmed LEVOTHYROXINE SODIUM (Synthroid) 75 mcg PO Q DAY ##0 04/28/10 06/05/21 [FLAXSEED OIL] Q DAY ##0 04/28/10 06/05/21 VITAMIN B COMPLEX ([id number]) 1 cap PO Q DAY ##0 03/11/12 06/05/21 ascorbic acid (vitamin C) 500 mg 500 mg PO QDAY #90 tabs 05/12/16 06/05/21 tablet calcium carbonate 500 mg-vitamin 1 tab QDAY #0 tabs 05/12/16 06/05/21 D3 5 mcg (200 unit) tablet (Oyster Shell Calcium-Vitamin D3) ginkgo biloba 120 mg tablet 120 mg PO ##0 05/12/16 06/05/21 hydrocodone 5 mg-acetaminophen 325 1 tab PO Q6HP PRN ##0 05/12/16 06/05/21 mg tablet (Waddell) peg 400-propylene glycol (PF) 0.4 1 ea OP ##0 05/12/16 06/05/21 %-0.3 % eye drops in a dropperette (Systane (PF)) Previous Rx's Medication Instructions Recorded carbamazepine 200 mg tablet 200 mg PO BID #180 tabs 05/15/16 Allergies Allergy/AdvReac Type Severity Reaction Status Date / Time adhesive tape AdvReac Mild Rash Verified 02/23/24 18:47 Review of Systems Review of Systems Narrative: See HPI Patient History Medical History Excessive daytime sleepiness (~02/2021) Snoring Insomnia due to medical condition (~02/2021) Obstructive sleep apnea, adult (~02/2021) Chronic back pain Cervical spine disease Abnormal gait (05/12/16) Acquired hypothyroidism (05/12/16) Trigeminal neuralgia (03/29/13) Osteoporosis (03/29/13) Hyperlipidemia (03/11/12) Surgical History Anesthesia History of spinal fusion History of bladder suspension procedure Status post appendectomy History of bilateral salpingo-oophorectomy (BSO) (~01/2006) Status post hysterectomy (~1969) Family History Father Familial Alzheimer's disease Mother Family history of esophageal carcinoma Social History marital status: number of children: 2 household members: spouse lives independently: Yes caregiver/support person: Yes () housing: house pets and animals: No education level: college occupational status: other 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, 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[employer]: [employer] travel history: recent leisure activities: other Smoking Status: Never smoker Tobacco: How many years used: 0 quit status: quit date established second hand exposure: Yes (When Younger.) alcohol intake: current substance use type: does not use Smoking Status: Never smoker Substance Use Type: does not use Exam Initial Vital Signs Initial Vital Signs: Vital Signs Temperature 98 F 02/23/24 18:45 Pulse Rate 99 H 02/23/24 18:45 Respiratory Rate 16 02/23/24 18:45 Blood Pressure 141/72 H 02/23/24 18:45 Pulse Oximetry 95 02/23/24 18:45 Oxygen Delivery Method Room Air 02/23/24 18:45 Const: Awake, alert, frail, debilitated, no acute distress MSK: Bruising along anterior distal left lower extremity Skin: 3 cm linear skin tear distal left lower extremity without active bleeding Neuro: AO x2, CN II-XII grossly intact, moves all extremities Course Orders Ordered: Discontinued Medications Bacitracin (Bacitracin Oint 0.9 Gm Pckt) 1 applic TOP NOW ONE Stop: 02/23/24 19:16 Last Admin: 02/23/24 19:30 Dose: 1 applic Documented By: BOYD Diphtheria/Tetanus/Acell Pertussis (Tet,Diph,Pertuss(Acell),Vac/Pf 0.5 Ml Syringe) 0.5 ml IM .ONCE ONE Stop: 02/23/24 19:16 Last Admin: 02/23/24 19:31 Dose: 0.5 ml Documented By: BOYD Vital Signs Vital signs: Vital Signs - 8 hr 02/23/24 18:45 Temperature 98 F Pulse Rate 99 H Respiratory Rate 16 Blood Pressure 141/72 H Pulse Oximetry 95 Oxygen Delivery Method Room Air MDM - Skin/Abscess/Foreign Bdy MDM Narrative Medical decision making narrative: Skin tear of lower extremity without active bleeding. Family is concerned due to swelling of the extremity, however this appears to be expected bruising, especially given patient has very thin skin and struck her leg. Family is adamant that patient did not hit her head and does not need a CT scan at this time. Family reassured, given wound care instructions. Wound dressed by nursing staff and bacitracin ointment applied. Care instructions provided prior to discharge. Discharge Plan Departure Patient Disposition: Home Clinical Impression: Noninfected skin tear of left leg Qualifiers: Encounter type: initial encounter Qualified Code(s): S81.812A - Laceration without foreign body, left lower leg, initial encounter Instructions: DI for Avulsion Laceration (Not Requiring Sutures) Activity Restrictions/Additional Instructions: Keep the skin tear clean and dry. Change the dressing at least 1 time per day. You may apply antibiotic ointment or vitamin-E oil to the scab to keep it soft and prevent tearing. Follow up with her primary care doctor. If you notice any changes in her behavior or you notice abnormal drainage from the wound please return for repeat evaluation. Right now there is a lot of bruising and it was normal to experience some swelling and warmth, however this should resolve after a few days. To decrease swelling I recommend applying ice to the wound and elevating the extremity above heart level. Prescriptions: No Action LEVOTHYROXINE SODIUM (Synthroid) 75 mcg PO Q DAY Qty: 0 [FLAXSEED OIL] Q DAY Qty: 0 VITAMIN B COMPLEX ([id number]) 1 cap PO Q DAY Qty: 0 ascorbic acid (vitamin C) 500 MG tablet 500 mg PO QDAY Qty: 90 calcium carbonate-vitamin D3 [Oyster Shell Calcium-Vit D3] 500 MG/200 IU tablet 1 tab QDAY Qty: 0 ginkgo biloba 120 MG tablet 120 mg PO Qty: 0 peg 400-propylene glycol (PF) [Systane (PF)] 1 EACH dropperette 1 ea OP Qty: 0 hydrocodone-acetaminophen [Waddell] 5 MG/325 MG tablet 1 tab PO Q6HP PRNQty: 0 carbamazepine 200 MG tablet 200 mg PO BID Qty: 180 3RF Referrals: Aleks Fraser MD [Primary Care Provider] - Stand Alone Forms: Patient Portal/API
[2024-02-23] MEDS: BACITRACIN OINT 0.9 GM PCKT 1 APPLIC TOP (19:30)
[2024-02-23] MEDS: TET,DIPH,PERTUSS(ACELL),VAC/PF 0.5 ML SYRINGE IM (19:31)
[2024-02-23 19:35] VITALS: BP 130/85; PULSE 87; RESP 18; O2SAT 98
== END 2024-02-23 19:46 | disposition home or self-care (01) ==
PROVIDERS: Emergency Provider Emergency Medicine; PCP Internal Medicine
DX: S81.812A Laceration without foreign body, left lower leg, initial encounter (principal); W01.198A Fall on same level from slipping, tripping and stumbling with subsequent striking against other object, initial encounter; Z23 Encounter for immunization
CPT/HCPCS: 90471; 99283; 90715

== ENCOUNTER → 2024-04-25 11:24 | Outpatient (CLI) | payer MEDICARE, SELFPAY ==
[2024-04-25 14:10] LABS: Influenza A - CEPHEID Flu A NEGATIVE (NEGATIVE); Influenza B - CEPHEID Flu B NEGATIVE (NEGATIVE); Respiratory Syncytial Virus Negative (Negative)
[2024-04-25 14:12] LABS: COVID-19 CEPHEID 4-PLEX PCR Negative (Negative)
== END ==
PROVIDERS: PCP Internal Medicine; Visit Provider Physician Assistant Medical
DX: R05.1 Acute cough (principal)
CPT/HCPCS: 0241U

== ENCOUNTER → 2024-04-25 11:46 | Outpatient (CLI) | payer MEDICARE, SELFPAY ==
--- NOTE | 2024-04-25 11:48 | DI.RAD.S_ITS ---
PROCEDURE: XR CHEST 2V INDICATIONS: SOB TECHNIQUE: 2 views of the chest were acquired. COMPARISON: None. FINDINGS: Surgical changes and devices: None. Lungs and pleura: Lungs are clear. No pleural effusions or pneumothorax. Mediastinum: Mediastinal contours are normal. Heart size is normal. Bones and chest wall: No suspicious bony abnormalities. Moderate size hiatal hernia is seen. IMPRESSION: No acute cardiopulmonary pathology. Moderate size hiatal hernia Dictated by: Max Patrick M.D. on 04/25/2024 at 12:04 Approved by: Max Patrick M.D. on 04/25/2024 at 12:04
== END ==
PROVIDERS: PCP Internal Medicine; Referring Provider Physician Assistant Medical; Visit Provider Physician Assistant Medical
DX: R05.1 Acute cough (principal); K44.9 Diaphragmatic hernia without obstruction or gangrene
CPT/HCPCS: 0241U; 71046

== ENCOUNTER → 2024-06-21 12:05 | Outpatient (CLI) | payer MEDICARE, SELFPAY ==
[2024-06-21 15:13] LABS: Alanine Aminotransferase 21 IU/L (<35); Albumin 3.6 g/dL (3.5-5.0); Albumin Globulin Ratio 1.3 (1.0-2.8); Alkaline Phosphatase 87 U/L (38-126); Aspartate Aminotransferase 27 IU/L (14-36); Bilirubin Total 0.7 mg/dL (0.2-1.3); Blood Urea Nitrogen 13 mg/dL (7-17); Calcium 9.7 mg/dL (8.4-10.2); Carbon Dioxide 29 mmol/L (22-32); Chloride 103 mmol/L (98-107); Estimated Glomerular Filt Rate > 60 mL/min (>60); Globulin 2.7 g/dL (1.7-4.1); Glucose 106 mg/dL (80-110); HEMOLYSIS 25 (0-50); Potassium 3.7 mmol/L (3.4-5.1); Sodium 137 mmol/L (137-145); Total Protein 6.3 g/dL (6.3-8.2)
[2024-06-21 17:07] LABS: Free T4, Direct Thyroxine 1.76 ng/dL (0.78-2.19)
[2024-06-21 18:04] LABS: Thyroid Stimulating Hormone 1.26 uIU/mL (0.47-4.68)
== END ==
LOC: LAB 12:08
PROVIDERS: PCP Internal Medicine; Referring Provider Internal Medicine; Visit Provider Internal Medicine
DX: E03.9 Hypothyroidism, unspecified (principal); E78.5 Hyperlipidemia, unspecified
CPT/HCPCS: 36415; 80053; 84439; 84443

== ENCOUNTER 2025-02-25 16:19 | Emergency (ER) | payer MEDICARE, SELFPAY ==
[2025-02-25] VITALS (13 sets, daily range): BP systolic 141–191; BP diastolic 70–95; PULSE 71–78; RESP 12–19; TEMP 36.1; O2SAT 93–98; BMI 27.7
[2025-02-25] MEDS: HYDROMORPHONE 0.5 MG INJ IV (20:00)
[2025-02-25] MEDS: SODIUM CHLORIDE 0.9% 1,000 ML 1000 ML IV (20:01)
[2025-02-25] MEDS: DEXAMETHASONE 10 MG/ML VIAL IV (20:01)
[2025-02-25 20:20] LABS: Add Manual Diff / Slide Review NO; Basophils Absolute Auto 0 /uL (0-100); Basophils Percent Auto 0.2 % (0-2); Eosinophils Absolute Auto 0 /uL (0-450); Eosinophils Percent Auto 0.5 % (2-4); Hematocrit 38.8 % (36-46); Hemoglobin 12.8 g/dL (12.0-16.0); Lymphocytes Absolute Auto 1500 /uL (1100-4500); Lymphocytes Percent Auto 18.6 % (25-40); Mean Corpuscular Hemoglobin 29.7 PG (26-34); Monocytes Absolute Auto 500 /uL (0-900); Monocytes Percent Auto 6.2 % (3-14); Neutrophils Absolute Auto 6100 /uL (1500-7000); Neutrophils Percent Auto 74.5 % (50-75); Platelet Count 226 X10^3/uL (150-400); Red Blood Cell Count 4.31 X10^6/uL (4.0-5.2); Red Cell Distribution Width 14.3 % (11.6-14.8); White Blood Cell Count 8.2 X10^3/uL (4.5-11.0)
[2025-02-25 20:34] LABS: Alanine Aminotransferase 15 IU/L (<35); Albumin 4.2 g/dL (3.5-5.0); Albumin Globulin Ratio 1.5 (1.0-2.8); Alkaline Phosphatase 107 U/L (38-126); Aspartate Aminotransferase 23 IU/L (14-36); BUN Creatinine Ratio 15.4 (6-22); Bilirubin Total 0.4 mg/dL (0.2-1.3); Blood Urea Nitrogen 10 mg/dL (7-17); Carbon Dioxide 29 mmol/L (22-32); Chloride 105 mmol/L (98-107); Estimated Glomerular Filt Rate > 60 mL/min (>60); Globulin 2.8 g/dL (1.7-4.1); Glucose 98 mg/dL (70-99); HEMOLYSIS < 15 (0-50); Sodium 142 mmol/L (137-145)
--- NOTE | 2025-02-25 22:38 | DI.CT.S_ITS ---
PROCEDURE: CT HEAD/BRAIN WO CON INDICATIONS: persistent headache TECHNIQUE: Noncontrast 4.5 mm thick angled axial sections acquired from the foramen magnum to the vertex, with coronal and sagittal reformats. For radiation dose reduction, the following was used: automated exposure control, adjustment of mA and/or kV according to patient size. COMPARISON: [facility], CT, CT HEAD/BRAIN WO CON, 05/08/2020, 12:06. FINDINGS: Image quality: Diagnostic. CSF spaces: Basal cisterns are patent. No extra-axial fluid collections. The ventricles are symmetric in size and shape. Brain: No intracranial bleeds or mass effect. There is cerebral volume loss, with resultant ventricular and sulcal prominence. There are periventricular and deep white matter chronic small vessel ischemic changes. There is intracranial internal carotid artery atherosclerosis. Skull and face: Calvarium and visualized facial bones appear intact, without suspicious lesions. Sinuses: Visualized sinuses and mastoids are clear. IMPRESSION: No acute intracranial pathology. No significant changes from prior study. Dictated by: Max Patrick M.D. on 02/25/2025 at 23:03 Approved by: Max Patrick M.D. on 02/25/2025 at 23:04
--- NOTE | 2025-02-25 23:44 | ED_ITS ---
HPI - Headache General Chief Complaint: Headache Stated Complaint: headache, sharp pain both sides Time Seen by Provider: 02/25/25 18:34 Mode of arrival: Wheelchair History of Present Illness HPI Narrative: 84-year-old woman who spends part of the year in [place], the remainder of your in [place], history of hypothyroidism, worsening cognitive deficit, history of trigeminal neuralgia, hyperlipidemia presents to the emergency room this evening complaining of a severe headache that she describes as affecting her entire head, starting this morning and getting progressively worse. She was given some ibuprofen earlier today that did not seem to help. She reports some photophobia, no acute visual changes no acute neurologic changes, no vomiting Related Data Home Medications Medication Instructions Recorded Confirmed [FLAXSEED OIL] Q DAY ##0 04/28/10 06/21/24 VITAMIN B COMPLEX ([id number]) 1 cap PO Q DAY ##0 03/11/12 06/21/24 ascorbic acid (vitamin C) 500 mg 500 mg PO QDAY #90 tabs 05/12/16 06/21/24 tablet calcium 500 mg (as 1 tab QDAY #0 tabs 05/12/16 06/21/24 carbonate)-vitamin D3 5 mcg (200 unit) tablet (Oyster Shell Calcium-Vitamin D3) ginkgo biloba 120 mg tablet 120 mg PO ##0 05/12/16 06/21/24 hydrocodone 5 mg-acetaminophen 325 1 tab PO Q6HP PRN ##0 05/12/16 06/21/24 mg tablet (Sterling) [id number] 1 tab PO DAILY 06/21/24 06/21/24 [Neuriva Plus Brain Performance] alendronate 70 mg tablet 70 mg PO QWEEK 06/21/24 06/21/24 atorvastatin 40 mg tablet 40 mg PO DAILY 06/21/24 06/21/24 carbamazepine 200 mg tablet 200 mg PO DAILY 06/21/24 06/21/24 ciprofloxacin HCl 500 mg tablet 500 mg PO DAILY 06/21/24 06/21/24 clopidogrel 75 mg tablet 75 mg PO DAILY 06/21/24 06/21/24 levothyroxine 75 mcg tablet 75 mcg PO DAILY 06/21/24 06/21/24 pantoprazole 40 mg tablet,delayed 40 mg PO DAILY 06/21/24 06/21/24 release pregabalin 25 mg capsule 25 mg PO BID 06/21/24 06/21/24 vitamins A,C,T-gbck-erwybx 4,296 1 cap PO DAILY 06/21/24 06/21/24 mcg-226 mg-90 mg capsule (PreserVision AREDS) Allergies Allergy/AdvReac Type Severity Reaction Status Date / Time adhesive tape AdvReac Mild Rash Verified 02/25/25 16:31 Review of Systems Review of Systems Narrative: Pertinent positive and negative findings as per HPI Patient History Medical History Mild cognitive disorder Excessive daytime sleepiness (~02/2021) Snoring Insomnia due to medical condition (~02/2021) Obstructive sleep apnea, adult (~02/2021) Chronic back pain Cervical spine disease Abnormal gait (05/12/16) Acquired hypothyroidism (05/12/16) Trigeminal neuralgia (03/29/13) Osteoporosis (03/29/13) Hyperlipidemia (03/11/12) Surgical History Anesthesia History of spinal fusion History of bladder suspension procedure Status post appendectomy History of bilateral salpingo-oophorectomy (BSO) (~01/2006) Status post hysterectomy (~1969) Family History Father Familial Alzheimer's disease Mother Family history of esophageal carcinoma Social History marital status: number of children: 2 household members: spouse lives independently: Yes caregiver/support person: Yes () housing: house pets and animals: No education level: college occupational status: other 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, 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 [employer]regation: [employer] travel history: recent leisure activities: other Smoking Status: Never smoker Tobacco: How many years used: 0 quit status: quit date established second hand exposure: Yes (When Younger.) alcohol intake: current substance use type: does not use Smoking Status: Never smoker Exam Initial Vital Signs Initial Vital Signs: Vital Signs Temperature 97 F L 02/25/25 16:31 Pulse Rate 77 02/25/25 16:31 Respiratory Rate 18 02/25/25 16:31 Blood Pressure 191/74 H 02/25/25 16:31 Pulse Oximetry 95 02/25/25 16:31 Oxygen Delivery Method Room Air 02/25/25 16:31 General: Frail appearing, no acute distress, does appear to have a headache HEENT: Moist mucous membranes, normal sclera with reactive pupils, Respiratory: Full and symmetrical air movement Cardiac: Regular rate and rhythm Abdomen: Soft, nontender, no rebound or guarding, no flank pain Skin: Warm and dry, no rashes Neurologic: Grossly neurologically intact with no obvious asymmetries or abnormalities Extremities: No trauma, well perfused Psych: Cooperative, mild cognitive deficits Course Orders Ordered: ED Orders 02/25/25 20:10 Carbamazepine Tegretol Level Stat Complete Blood Count AUTO DIFF Stat Comprehensive Metabolic Panel Stat 02/25/25 22:38 CT head/brain wo con Stat Discontinued Medications Dexamethasone (Dexamethasone 10 Mg/Ml Vial) 10 mg IV NOW ONE Stop: 02/25/25 18:35 Last Admin: 02/25/25 20:01 Dose: 10 mg Documented By: Hydromorphone HCl (Hydromorphone 0.5 Mg Inj) 0.5 mg IV NOW ONE Stop: 02/25/25 18:35 Last Admin: 02/25/25 20:00 Dose: 0.5 mg Documented By: Sodium Chloride (Normal Saline 0.9%) 1,000 mls @ 1,000 mls/hr IV BOLUS ONE Stop: 02/25/25 19:33 Last Infusion: 02/25/25 21:57 Dose: Infused Documented By: Admin: 02/25/25 20:01 Dose: 1,000 mls/hr Documented By: Vital Signs Vital signs: Vital Signs - 8 hr 02/25/25 16:31 02/25/25 18:52 02/25/25 18:52 Temperature 97 F L Pulse Rate 77 77 Respiratory Rate 18 19 Blood Pressure 191/74 H 141/90 H Pulse Oximetry 95 94 Oxygen Delivery Method Room Air 02/25/25 19:00 02/25/25 19:30 02/25/25 19:30 Temperature Pulse Rate 72 71 Respiratory Rate 19 18 Blood Pressure 147/95 H Pulse Oximetry 98 98 Oxygen Delivery Method 02/25/25 20:00 02/25/25 20:00 02/25/25 20:30 Temperature Pulse Rate 76 75 Respiratory Rate 17 Blood Pressure 149/70 H Pulse Oximetry 98 98 Oxygen Delivery Method 02/25/25 20:30 02/25/25 21:00 02/25/25 21:00 Temperature Pulse Rate 73 Respiratory Rate 16 17 Blood Pressure 160/74 H 162/79 H Pulse Oximetry 98 Oxygen Delivery Method 02/25/25 21:30 02/25/25 21:30 02/25/25 21:53 Temperature Pulse Rate 75 78 Respiratory Rate 13 14 Blood Pressure 177/78 H Pulse Oximetry 98 94 Oxygen Delivery Method 02/25/25 21:53 02/25/25 22:00 02/25/25 22:00 Temperature Pulse Rate 74 Respiratory Rate 12 Blood Pressure 175/81 H 153/78 H Pulse Oximetry 96 Oxygen Delivery Method 02/25/25 22:57 02/25/25 23:00 02/25/25 23:30 Temperature Pulse Rate 75 77 73 Respiratory Rate 12 15 Blood Pressure Pulse Oximetry 93 96 Oxygen Delivery Method MDM - Headache Lab Data 02/25/25 20:10 02/25/25 20:10 Labs: Lab Results 02/25/25 Range/Units 20:10 WBC 8.2 (4.5-11.0) X10^3/uL RBC 4.31 (4.0-5.2) X10^6/uL Hgb 12.8 (12.0-16.0) g/dL Hct 38.8 (36-46) % MCV 90.0 (80-100) fL MCH 29.7 (26-34) PG MCHC 33.0 (30-36) % RDW 14.3 (11.6-14.8) % Plt Count 226 (150-400) X10^3/uL Neut % (Auto) 74.5 (50-75) % Lymph % (Auto) 18.6 L (25-40) % [facility] % (Auto) 6.2 (3-14) % Eos % (Auto) 0.5 L (2-4) % Baso % (Auto) 0.2 (0-2) % Neut # (Auto) 6100 (0006-2404) /uL Lymph # (Auto) 1500 (2527-0269) /uL [facility] # (Auto) 500 (0-900) /uL Eos # (Auto) 0 (0-450) /uL Baso # (Auto) 0 (0-100) /uL Sodium 142 (137-145) mmol/L Potassium 4.0 (3.4-5.1) mmol/L Chloride 105 (98-107) mmol/L Carbon Dioxide 29 (22-32) mmol/L BUN 10 (7-17) mg/dL Creatinine 0.65 (0.52-1.04) mg/dL Estimated GFR > 60 (>60) mL/min BUN/Creatinine Ratio 15.4 (6-22) Glucose 98 (70-99) mg/dL Calcium 9.0 (8.4-10.2) mg/dL Total Bilirubin 0.4 (0.2-1.3) mg/dL AST 23 (14-36) IU/L ALT 15 (<35) IU/L Alkaline Phosphatase 107 (38-126) U/L Total Protein 7.0 (6.3-8.2) g/dL Albumin 4.2 (3.5-5.0) g/dL Globulin 2.8 (1.7-4.1) g/dL Albumin/Globulin Ratio 1.5 (1.0-2.8) MDM Narrative Medical decision making narrative: 84-year-old woman presents with headaches. States that they have been more frequent and increasingly painful over the last 2 months. isn't clear how much of this is baseline, how much might be related to her neck ( has a history of chronic neck pain but not complaining of any current neck pain recently) and how much is exacerbated by her progressive cognitive deficits. Pain is significantly better at time of discharge from the emergency department. She was given fluids, dexamethasone and half a mg of Dilaudid. CT scan did not show acute pathology. CBC, CMP were all unremarkable. There was no sign of acute stroke or other infection. At this time I have recommended discharge home with outpatient follow up. Given the worsening nature of her headaches neurologic outpatient referral may end up being quite appropriate. There was no indication for hospitalization or additional imaging at this time and she is safe for discharge home Discharge Plan Departure Patient Disposition: Home Clinical Impression: Headache Qualifiers: Headache type: unspecified Headache chronicity pattern: acute headache I ntractability: not intractable Qualified Code(s): R51.9 - Headache, unspecified Instructions: DI for Headache Activity Restrictions/Additional Instructions: thank you for coming in today to treat you are headache tonight you are given 1 L of fluid, steroids to try to help the headache not return, half a mg of Dilaudid which is a narcotic pain medication. Your blood work does not suggest acute infection, there is no anemia, your chemistries including kidney function, liver function, electrolytes all look nice and normal we did do a CT scan of your head that did not show strokes, tumors, masses or anything pressing or obviously causing headache pain for future headaches I would try to Excedrin and see if that stops the headache before it comes severe. if that does not work, using 400 mg of ibuprofen (2 pokm-[id number] pills) and 1 Tylenol every 6 hours can be very helpful in controlling pain. I finally, I would recommend that you follow up with Dr. Fraser to see if he has any further thoughts on what to do to figure out why she has a more headaches over the last 2 months. If you find that you are getting worse or develop any new symptoms, please feel free to return to the emergency department for further evaluation. Prescriptions: No Action [FLAXSEED OIL] Q DAY Qty: 0 VITAMIN B COMPLEX ([id number]) 1 cap PO Q DAY Qty: 0 ascorbic acid (vitamin C) 500 MG tablet 500 mg PO QDAY Qty: 90 calcium carbonate-vitamin D3 [Oyster Shell Calcium-Vit D3] 500 MG/200 IU tablet 1 tab QDAY Qty: 0 ginkgo biloba 120 MG tablet 120 mg PO Qty: 0 hydrocodone-acetaminophen [Sterling] 5 MG/325 MG tablet 1 tab PO Q6HP PRNQty: 0 carbamazepine 200 mg tablet 200 mg PO DAILY pantoprazole 40 mg tablet,delayed release (DR/EC) 40 mg PO DAILY pregabalin 25 mg capsule 25 mg PO BID levothyroxine 75 mcg tablet 75 mcg PO DAILY clopidogrel 75 mg tablet 75 mg PO DAILY alendronate 70 mg tablet 70 mg PO QWEEK atorvastatin 40 mg tablet 40 mg PO DAILY ciprofloxacin HCl 500 mg tablet 500 mg PO DAILY PreserVision AREDS 4,296 mcg-226 mg-90 mg capsule 1 cap PO DAILY [id number] [Neuriva Plus Brain Performance] 1 tab PO DAILY Referrals: Aleks Fraser MD [Primary Care Provider] - Stand Alone Forms: Patient Portal/API/Survey
[2025-02-26] VITALS: PULSE 80; RESP 18; O2SAT 93
[2025-02-27 21:39] LABS: Carbamazepine Tegretol Level 6.9 ug/mL (4.0-12.0)
== END 2025-02-26 00:19 | disposition home or self-care (01) ==
PROVIDERS: Emergency Provider Emergency Medicine; PCP Internal Medicine
DX: R51.9 Headache, unspecified (principal); H53.149 Visual discomfort, unspecified; R41.89 Other symptoms and signs involving cognitive functions and awareness
CPT/HCPCS: 36415; 70450; 80053; 80156; 85025; 96361; 96374; 96375; 99284; J1100; J1171

== ENCOUNTER 2025-03-04 11:42 | Emergency (ER) | payer MEDICARE, SELFPAY ==
[2025-03-04] VITALS (19 sets, daily range): BP systolic 150–188; BP diastolic 63–92; PULSE 61–80; RESP 13–21; TEMP 36.6; O2SAT 92–100; BMI 28.3
--- NOTE | 2025-03-04 11:48 | DI.RAD.S_ITS ---
PROCEDURE: XR CHEST 1V INDICATIONS: Chest Pain TECHNIQUE: One view of the chest was acquired. COMPARISON: [facility], CR, XR CHEST 2V, 04/25/2024, 11:47. FINDINGS: Surgical changes and devices: None. Lungs and pleura: Lungs are clear. No pleural effusions or pneumothorax. Low lung volumes accentuate pulmonary interstitium and heart size. Atherosclerotic vascular calcification noted in the aortic arch. Mediastinum: Mediastinal contours appear normal. Heart size is normal. Bones and chest wall: No suspicious bony lesions. Overlying soft tissues appear unremarkable. IMPRESSION: No acute cardiopulmonary abnormality is seen. Approved by: Zain Radford M.D. on 03/04/2025 at 11:28
--- NOTE | 2025-03-04 11:50 | ED.HA ---
HPI - Headache General Chief Complaint: Fall Stated Complaint: Headache x5, Falls Time Seen by Provider: 03/04/25 11:47 History of Present Illness HPI Narrative: 84-year-old female here history of dementia dyslipidemia trigeminal neuralgia abnormal gait obstructive sleep apnea presents with progressive headache over the last 3-4 months has been getting worse over the past week seen on 02/25 25 with negative workup sent home presents today for re-evaluation of continued headache despite being on pain medicine with no significant relief of her symptoms along with worsening abnormal gait with ambulation in regards to stability. She denies fever, chills, stiff neck, rash, nausea, vomiting, blurry vision, chest pain, shortness of breath, cough, runny nose, sore throat, ear pain. Other than what is stated 14 point review of system is negative. Related Data Home Medications ?Medication ?Instructions ?Recorded ?Confirmed [FLAXSEED OIL] Q DAY ##0 04/28/10 06/21/24 VITAMIN B COMPLEX ([id number]) 1 cap PO Q DAY ##0 03/11/12 06/21/24 ascorbic acid (vitamin C) 500 mg 500 mg PO QDAY #90 tabs 05/12/16 06/21/24 tablet calcium 500 mg (as 1 tab QDAY #0 tabs 05/12/16 06/21/24 carbonate)-vitamin D3 5 mcg (200 unit) tablet (Oyster Shell Calcium-Vitamin D3) ginkgo biloba 120 mg tablet 120 mg PO ##0 05/12/16 06/21/24 hydrocodone 5 mg-acetaminophen 325 1 tab PO Q6HP PRN ##0 05/12/16 06/21/24 mg tablet (Aurora) [id number]-lwantvljid 1 tab PO DAILY 06/21/24 06/21/24 [Neuriva Plus Brain Performance] alendronate 70 mg tablet 70 mg PO QWEEK 06/21/24 06/21/24 atorvastatin 40 mg tablet 40 mg PO DAILY 06/21/24 06/21/24 carbamazepine 200 mg tablet 200 mg PO DAILY 06/21/24 06/21/24 ciprofloxacin HCl 500 mg tablet 500 mg PO DAILY 06/21/24 06/21/24 clopidogrel 75 mg tablet 75 mg PO DAILY 06/21/24 06/21/24 levothyroxine 75 mcg tablet 75 mcg PO DAILY 06/21/24 06/21/24 pantoprazole 40 mg tablet,delayed 40 mg PO DAILY 06/21/24 06/21/24 release pregabalin 25 mg capsule 25 mg PO BID 06/21/24 06/21/24 vitamins A,C,W-zrnr-everyb 4,296 1 cap PO DAILY 06/21/24 06/21/24 mcg-226 mg-90 mg capsule (PreserVision AREDS) Previous Rx's ?Medication ?Instructions ?Recorded pwmgxbtogu-tjmfzsyxsauwv-jfyfvtsl 1 cap PO Q4-6H PRN pain #30 caps 03/04/25 50 mg-300 mg-40 mg capsule (Fioricet) Allergies Allergy/AdvReac Type Severity Reaction Status Date / Time adhesive tape AdvReac Mild Rash Verified 03/04/25 11:47 Review of Systems Review of Systems ROS Unobtainable: All systems reviewed & are unremarkable except as noted in HPI and below Patient History Medical History Mild cognitive disorder Excessive daytime sleepiness (~02/2021) Snoring Insomnia due to medical condition (~02/2021) Obstructive sleep apnea, adult (~02/2021) Chronic back pain Cervical spine disease Abnormal gait (05/12/16) Acquired hypothyroidism (05/12/16) Trigeminal neuralgia (03/29/13) Osteoporosis (03/29/13) Hyperlipidemia (03/11/12) Surgical History Anesthesia History of spinal fusion History of bladder suspension procedure Status post appendectomy History of bilateral salpingo-oophorectomy (BSO) (~01/2006) Status post hysterectomy (~1969) Family History Father Familial Alzheimer's disease Mother Family history of esophageal carcinoma Social History marital status: number of children: 2 household members: spouse lives independently: Yes caregiver/support person: Yes () housing: house pets and animals: No education level: college occupational status: other 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 Well-developed patient, in mild distress. HEAD: Atraumatic. Normocephalic. EYES: Pupils equal round and reactive. Extraocular motions intact. No scleral icterus. No injection or drainage. ENT: Nose without bleeding, purulent drainage. Throat without erythema, tonsillar hypertrophy or exudate. Airway patent. NECK: Trachea midline. Non tender CARDIOVASCULAR: Regular rate and rhythm without murmurs, gallops, or rubs. RESPIRATORY: Clear to auscultation. Breath sounds equal bilaterally. No wheezes, rales, or rhonchi. GASTROINTESTINAL: Abdomen soft, non-tender, nondistended. EXTREMITIES: No edema or joint tenderness. BACK: Nontender without deformity or crepitance. No flank tenderness. NEURO: AOx3. GCS 15 nonfocal neuro exam negative pronator drift 5/5 upper and lower extremity rapid alternating movements napihf-fz-iota opposite vrnq-fo-vxul intact SKIN: No rash or erythema of visible areas Initial Vital Signs Initial Vital Signs: Vital Signs Pulse Rate 69 03/04/25 11:43 Pulse Oximetry 93 03/04/25 11:43 Course Orders Ordered: ED Orders 03/04/25 11:45 Complete Blood Count AUTO DIFF Stat Comprehensive Metabolic Panel Stat Lipase Stat Magnesium Stat NT-proBNP (BNP-Adult 18+) Stat PTT Partial Thromboplastin [place] Stat Prothrombin Time INR Stat Troponin & CK Cardiac Panel Stat 03/04/25 11:48 XR chest 1V Stat EKG-12 Lead Stat EKG-12 Lead Stat 03/04/25 11:51 CT angio head and neck Stat CT head/brain wo con Stat 03/04/25 13:34 EKG-12 Lead Stat 03/04/25 14:10 Trop I [Troponin I] Stat Discontinued Medications Aspirin (Aspirin 81 Mg Chew Tab) 324 mg PO NOW ONE Stop: 03/04/25 11:49 Last Admin: 03/04/25 12:36 Dose: Not Given Documented By: LM Hydromorphone HCl (Hydromorphone 1 Mg Inj) 1 mg IV NOW ONE Stop: 03/04/25 13:38 Last Admin: 03/04/25 14:01 Dose: 1 mg Documented By: MARLENA Lactated Ringer's (Lactated Ringers) 1,000 mls @ 1,000 mls/hr IV BOLUS ONE Stop: 03/04/25 14:36 Last Infusion: 03/04/25 15:25 Dose: Infused Documented By: Admin: 03/04/25 13:59 Dose: 1,000 mls/hr Documented By: MARLENA Vital Signs Vital signs: Vital Signs - 8 hr 03/04/25 11:43 03/04/25 11:44 03/04/25 11:44 Temperature Pulse Rate 69 66 Respiratory Rate Blood Pressure 151/78 H Pulse Oximetry 93 94 Oxygen Delivery Method Oxygen Flow Rate 03/04/25 11:47 03/04/25 12:17 03/04/25 12:30 Temperature 97.8 F Pulse Rate 70 69 73 Respiratory Rate 16 17 Blood Pressure 151/78 H Pulse Oximetry 98 95 Oxygen Delivery Method Room Air Oxygen Flow Rate 03/04/25 12:38 03/04/25 12:38 03/04/25 12:40 Temperature Pulse Rate 71 Respiratory Rate 16 Blood Pressure 185/81 H 181/80 H Pulse Oximetry 95 Oxygen Delivery Method Oxygen Flow Rate 03/04/25 12:40 03/04/25 13:00 03/04/25 13:01 Temperature Pulse Rate 71 74 Respiratory Rate 14 17 Blood Pressure 160/63 H Pulse Oximetry 93 94 Oxygen Delivery Method Oxygen Flow Rate 03/04/25 13:01 03/04/25 13:30 03/04/25 13:30 Temperature Pulse Rate 76 80 Respiratory Rate 13 18 Blood Pressure 150/91 H Pulse Oximetry 94 97 Oxygen Delivery Method Oxygen Flow Rate 03/04/25 14:00 03/04/25 14:00 03/04/25 14:14 Temperature Pulse Rate 69 Respiratory Rate 17 Blood Pressure 188/86 H 153/70 H Pulse Oximetry 97 Oxygen Delivery Method Oxygen Flow Rate 03/04/25 14:14 03/04/25 14:30 03/04/25 14:30 Temperature Pulse Rate 70 66 Respiratory Rate 18 15 Blood Pressure 164/73 H Pulse Oximetry 92 98 Oxygen Delivery Method Nasal Cannula Oxygen Flow Rate 2 03/04/25 15:00 03/04/25 15:00 03/04/25 15:29 Temperature Pulse Rate 65 61 Respiratory Rate 16 14 Blood Pressure 171/92 H Pulse Oximetry 100 100 Oxygen Delivery Method Oxygen Flow Rate 03/04/25 15:30 Temperature Pulse Rate Respiratory Rate Blood Pressure 165/84 H Pulse Oximetry Oxygen Delivery Method Oxygen Flow Rate MDM - Headache Lab Data 03/04/25 11:45 03/04/25 11:45 Labs: Lab Results 03/04/25 03/04/25 Range/Units 11:45 14:10 WBC 7.1 (4.5-11.0) X10^3/uL RBC 4.73 (4.0-5.2) X10^6/uL Hgb 13.9 (12.0-16.0) g/dL Hct 42.5 (36-46) % MCV 89.8 (80-100) fL MCH 29.3 (26-34) PG MCHC 32.7 (30-36) % RDW 14.3 (11.6-14.8) % Plt Count 294 (150-400) X10^3/uL Neut % (Auto) 68.1 (50-75) % Lymph % (Auto) 24.5 L (25-40) % [place] % (Auto) 6.6 (3-14) % Eos % (Auto) 0.5 L (2-4) % Baso % (Auto) 0.3 (0-2) % Neut # (Auto) 4800 (4343-8727) /uL Lymph # (Auto) 1700 (0927-0090) /uL [place] # (Auto) 500 (0-900) /uL Eos # (Auto) 0 (0-450) /uL Baso # (Auto) 0 (0-100) /uL PT 11.0 (9.4-12.5) SECONDS INR 1.0 (0.9-1.3) APTT 38 H (25.1-36.5) SECONDS Sodium 134 L (137-145) mmol/L Potassium 3.6 (3.4-5.1) mmol/L Chloride 99 (98-107) mmol/L Carbon Dioxide 26 (22-32) mmol/L BUN 11 (7-17) mg/dL Creatinine 0.50 L (0.52-1.04) mg/dL Estimated GFR > 60 (>60) mL/min BUN/Creatinine Ratio 22.0 (6-22) Glucose 89 (70-99) mg/dL Calcium 8.9 (8.4-10.2) mg/dL Magnesium 2.1 (1.6-2.3) mg/dL Total Bilirubin 0.6 (0.2-1.3) mg/dL AST 26 (14-36) IU/L ALT 14 (<35) IU/L Alkaline Phosphatase 124 (38-126) U/L Total Creatine Kinase 26 L (30-135) U/L Troponin I < 0.012 < 0.012 (0.01-0.034) ng/mL NT-Pro-B Natriuret Pep 79 (<450) pg/mL Total Protein 7.1 (6.3-8.2) g/dL Albumin 4.1 (3.5-5.0) g/dL Globulin 3.0 (1.7-4.1) g/dL Albumin/Globulin Ratio 1.4 (1.0-2.8) Lipase 98 (23-300) U/L Imaging Data Chest x-ray: Radiologist's Impression: [place] [address] XRay Report Signed Patient: Berta Matta MR#: [id number] : 1940 Acct:[id number] Age/Sex: 84 / F Date of Service: 03/04/25 Loc: ED Accession Number: [id number] Procedure: XR chest 1V Ordering Provider: Aleks Sutherland D.O. PROCEDURE: XR CHEST 1V INDICATIONS: Chest Pain TECHNIQUE: One view of the chest was acquired. COMPARISON: [facility], , XR CHEST 2V, 04/25/2024, 11:47. FINDINGS: Surgical changes and devices: None. Lungs and pleura: Lungs are clear. No pleural effusions or pneumothorax. Low lung volumes accentuate pulmonary interstitium and heart size. Atherosclerotic vascular calcification noted in the aortic arch. Mediastinum: Mediastinal contours appear normal. Heart size is normal. Bones and chest wall: No suspicious bony lesions. Overlying soft tissues appear unremarkable. IMPRESSION: No acute cardiopulmonary abnormality is seen. CT scan - head: Radiologist's Impression: [address] [address] [address] Scan Report Signed Patient: Berta Matta MR#: [id number] : 1940 Acct:[id number] Age/Sex: 84 / F Date of Service: 03/04/25 Loc: ED Accession Number: [id number] Procedure: CT head/brain wo con Ordering Provider: Aleks Sutherland D.O. PROCEDURE: CT HEAD/BRAIN WO CON INDICATIONS: headache/frequent falls TECHNIQUE: Noncontrast 4.5 mm thick angled axial sections acquired from the foramen magnum to the vertex, with coronal and sagittal reformats. For radiation dose reduction, the following was used: automated exposure control, adjustment of mA and/or kV according to patient size. COMPARISON: [facility], CT, CT HEAD/BRAIN WO CON, 05/08/2020, 12:06. [facility], CT, CT HEAD/BRAIN WO CON, 02/25/2025, 22:47. FINDINGS: Image quality: Diagnostic. CSF spaces: Ventriculomegaly slightly out of proportion to sulcal widening, nevertheless stable from 2019 Brain: No midline shift. No intracranial mass effect or hemorrhage. Dooley-white matter interface is normal. Atrophy and confluent white matter chronic ischemic change Skull and face: Calvarium and visualized facial bones are intact, without suspicious lesions. Sinuses: Complete opacification of the right sphenoid sinus has increased from the more recent prior exam. Associated osseous wall thickening IMPRESSION: Atrophy and confluent chronic ischemic change without acute hemorrhage or mass effect Chronic right sphenoid sinus disease Moderate ventriculomegaly out of proportion to degree of cerebral atrophy. Differential would include centralized atrophy and normal pressure hydrocephalus. If clinically relevant, consider additional confirmatory testing. Approved by: Zain Radford M.D. on 03/04/2025 at 11:45 [place] [address] CT Scan Report Signed Patient: Berta Matta MR#: [id number] : 1940 Acct:[id number] Age/Sex: 84 / F Date of Service: 03/04/25 Loc: ED Accession Number: [id number] Procedure: CT angio head and neck Ordering Provider: Aleks Sutherland D.O. PROCEDURE: CT ANGIO HEAD AND NECK INDICATIONS: headache/frequent falls TECHNIQUE: After the administration of intravenous contrast, 1 mm thick sections acquired from the aortic arch through the [place] of [place]. MIP reformats of the arterial vasculature were utilized. For radiation dose reduction, the following was used: automated exposure control, adjustment of mA and/or kV according to patient size. COMPARISON: None. FINDINGS: Cerebral CT Angiogram: Internal carotid arteries: No acute findings. Intracranial ICA are patent with no significant stenosis. No occlusion. No aneurysm. Mild cavernous segment atherosclerotic vascular calcification Anterior cerebral arteries: Unremarkable. No significant stenosis. No occlusion. No aneurysm. Middle cerebral arteries: Unremarkable. No significant stenosis. No occlusion. No aneurysm. Posterior cerebral arteries: Unremarkable. No significant stenosis. No occlusion. No aneurysm. Basilar artery: Unremarkable. No significant stenosis. No occlusion. No aneurysm. Vertebral arteries: Unremarkable as visualized. Dural venous sinuses: Unremarkable given phase of enhancement. Other: Arterial phase appearance of the brain parenchyma is unremarkable. Neck CT Angiogram: Internal carotid arteries: Unremarkable. No significant stenosis. No dissection or occlusion. Common carotid arteries: Unremarkable. No significant stenosis. No dissection or occlusion. External carotid arteries: Unremarkable. No occlusion. Vertebral arteries: Unremarkable. No significant stenosis. No dissection or occlusion. Aortic Arch and Mediastinum: Partially visualized aortic arch unremarkable without evidence of aneurysm. Origins of the great vessels unremarkable. Other: Arterial phase soft tissues of the neck and chest are unremarkable. IMPRESSION: No significant intracranial arterial abnormality is seen. No significant abnormality is seen within the arteries of the neck. Any quantitative measurements of stenosis were performed using NASCET criteria. ECG Data Interpretation: NSR HR 69 AR 132 QRS [address]-t wave change No previous EKG to compare against [facility] Narrative Medical decision making narrative: All lab work vital signs nurse triage note medication list previous ER visits in all imaging studies reviewed. All lab work was normal CBC was normal 2 sets troponins were normal chemistries were normal. CT head showed moderate ventr tracheal megaly out of proportion to degree of cerebral atrophy differential diagnosis includes central atrophy and normal pressure hydrocephalus. Case was discussed with Dr. odom neurologist on-call at who did not feel this was normal pressure hydrocephalus but more consistent with her dementia and no acute or emergent transfer or any further workup needed at this time. Patient given fluids and Dilaudid here feels much better on reexamination will be sent home shortly. Differential diagnosis includes aneurysm hemorrhage CVA TIA trigeminal neuralgia atypical migraine. Patient will follow up PCP this coming week for re-evaluation. Discharge Plan Departure Patient Disposition: Home Clinical Impression: Headache Qualifiers: Headache type: tension-type Headache chronicity pattern: acute headache Intractability: not intractable Qualified Code(s): G44.209 - Tension-type headache, unspecified, not intractable Activity Restrictions/Additional Instructions: Return with new or worsening symptoms. Take your medicines started. Follow up PCP next week for re-evaluation Prescriptions: New svbuepxajk-bqohzpobbdiot-yhzz [Fioricet] 50-300-40 mg capsule 1 cap PO Q4-6H PRN (Reason: pain) Qty: 30 0RF No Action [FLAXSEED OIL] Q DAY Qty: 0 VITAMIN B COMPLEX ([id number]) 1 cap PO Q DAY Qty: 0 ascorbic acid (vitamin C) 500 MG tablet 500 mg PO QDAY Qty: 90 calcium carbonate-vitamin D3 [Oyster Shell Calcium-Vit D3] 500 MG/200 IU tablet 1 tab QDAY Qty: 0 ginkgo biloba 120 MG tablet 120 mg PO Qty: 0 hydrocodone-acetaminophen [Aurora] 5 MG/325 MG tablet 1 tab PO Q6HP PRNQty: 0 carbamazepine 200 mg tablet 200 mg PO DAILY pantoprazole 40 mg tablet,delayed release (DR/EC) 40 mg PO DAILY pregabalin 25 mg capsule 25 mg PO BID levothyroxine 75 mcg tablet 75 mcg PO DAILY clopidogrel 75 mg tablet 75 mg PO DAILY alendronate 70 mg tablet 70 mg PO QWEEK atorvastatin 40 mg tablet 40 mg PO DAILY ciprofloxacin HCl 500 mg tablet 500 mg PO DAILY PreserVision AREDS 4,296 mcg-226 mg-90 mg capsule 1 cap PO DAILY [id number]-ldzdcp-qwqbznecnw [Neuriva Plus Brain Performance] 1 tab PO DAILY Referrals: Aleks Fraser MD [Primary Care Provider, Internal Medicine] Stand Alone Forms: Patient Portal/API
--- NOTE | 2025-03-04 11:58 | EKG_ITS ---
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
[2025-03-04 12:10] LABS: Add Manual Diff / Slide Review NO; Basophils Absolute Auto 0 /uL (0-100); Basophils Percent Auto 0.3 % (0-2); Eosinophils Absolute Auto 0 /uL (0-450); Eosinophils Percent Auto 0.5 % (2-4); Hematocrit 42.5 % (36-46); Hemoglobin 13.9 g/dL (12.0-16.0); Lymphocytes Absolute Auto 1700 /uL (1100-4500); Lymphocytes Percent Auto 24.5 % (25-40); Mean Corpuscular HGB Conc 32.7 % (30-36); Mean Corpuscular Hemoglobin 29.3 PG (26-34); Mean Corpuscular Volume 89.8 fL (80-100); Monocytes Absolute Auto 500 /uL (0-900); Monocytes Percent Auto 6.6 % (3-14); Neutrophils Absolute Auto 4800 /uL (1500-7000); Neutrophils Percent Auto 68.1 % (50-75); Platelet Count 294 X10^3/uL (150-400); Red Blood Cell Count 4.73 X10^6/uL (4.0-5.2); Red Cell Distribution Width 14.3 % (11.6-14.8); White Blood Cell Count 7.1 X10^3/uL (4.5-11.0)
[2025-03-04 12:21] LABS: PTT Partial Thromboplastin Tim 38 SECONDS (25.1-36.5)
[2025-03-04 12:40] LABS: Alanine Aminotransferase 14 IU/L (<35); Albumin 4.1 g/dL (3.5-5.0); Albumin Globulin Ratio 1.4 (1.0-2.8); Alkaline Phosphatase 124 U/L (38-126); Aspartate Aminotransferase 26 IU/L (14-36); Bilirubin Total 0.6 mg/dL (0.2-1.3); Blood Urea Nitrogen 11 mg/dL (7-17); Calcium 8.9 mg/dL (8.4-10.2); Carbon Dioxide 26 mmol/L (22-32); Chloride 99 mmol/L (98-107); Creatine Kinase 26 U/L (30-135); Estimated Glomerular Filt Rate > 60 mL/min (>60); Glucose 89 mg/dL (70-99); HEMOLYSIS 27 (0-50); Lipase 98 U/L (23-300); Magnesium 2.1 mg/dL (1.6-2.3); Potassium 3.6 mmol/L (3.4-5.1); Sodium 134 mmol/L (137-145); Total Protein 7.1 g/dL (6.3-8.2)
[2025-03-04 12:51] LABS: NT-proBNP (BNP-Adult 18+) 79 pg/mL (<450); Troponin I < 0.012 ng/mL (0.01-0.034)
--- NOTE | 2025-03-04 12:59 | PC.NURSE ---
Pt placed on purwick, call light within place, pt verbalized understanding of purwick and call light. at bedside, informed this RN that pt has been having pain to the side of her face and up into head for approx 5 days and generalized weakness. Pt's also stated that pt was seen in ED recently for similar, but was cleared to go home. Pt has hx of trigeminal pain, some dementia per , headaches.
--- NOTE | 2025-03-04 13:55 | EKG_ITS ---
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
[2025-03-04] MEDS: LACTATED RINGERS 1,000 ML 1000 ML IV (13:59)
[2025-03-04] MEDS: HYDROMORPHONE 1 MG INJ IV (14:01)
[2025-03-04 14:42] LABS: Troponin I < 0.012 ng/mL (0.01-0.034)
[2025-03-04] MEDS: ONDANSETRON 4 MG ODT SL (17:05)
== END 2025-03-04 17:13 | disposition home or self-care (01) ==
PROVIDERS: Emergency Provider Family Medicine; PCP Internal Medicine
DX: G44.209 Tension-type headache, unspecified, not intractable (principal); R26.89 Other abnormalities of gait and mobility; F03.90 Unspecified dementia, unspecified severity, without behavioral disturbance, psychotic disturbance, mood disturbance, and anxiety
CPT/HCPCS: 36415; 70450; 70496; 70498; 71045; 80053; 82550; 83690; 83735; 83880; 84484; 85025; 85610; 85730; 93005; 96361; 96374; 99284; 99285; J1171; Q9967

== ENCOUNTER → 2025-04-01 13:00 | Outpatient (CLI) | payer MEDICARE, SELFPAY ==
--- NOTE | 2025-04-01 13:04 | DI.MRI.S_ITS ---
PROCEDURE: MR HEAD/BRAIN WO/W CON INDICATIONS: CHRONIC MIGRAINES TECHNIQUE: Noncontrast axial T1 spin echo, axial T2 fast spin echo, sagittal and axial FLAIR, coronal T2 fast spin echo, axial gradient echo, axial diffusion and ADC through the brain. After the administration of contrast, axial and coronal and sagittal T1 spin echo with fat saturation through the brain. COMPARISON: [facility], CT, CT HEAD/BRAIN WO CON, 03/04/2025, 12:05. MR, MR STROKE, 03/04/2018, 8:51. FINDINGS: Image quality: Excellent. CSF spaces: Basal cisterns are patent. No extra-axial fluid collections. Ventricles are normal in size and shape. Brain: No midline shift. No acute intracranial bleeds or masses. Multiple low gradient echo signal intensity foci within the bilateral cerebral and cerebellar hemispheres. No abnormal intracranial enhancement. There is cerebral volume loss for age. There is periventricular white matter chronic small vessel ischemic change. Small chronic bilateral basal ganglia infarcts. The brainstem appears normal. Diffusion- weighted images demonstrate no acute infarct. No chronic ischemic insults. Normal intravascular flow voids are present. Skull and face: Calvarial marrow is normal in signal. Orbits appear normal. Sinuses: Severe right and mild left hyoid sinus mucosal thickening. Moderate left mastoid fluid. IMPRESSION: 1. No acute process. No recent infarct. 2. Volume loss and small vessel ischemic disease. 3. Multiple low gradient echo signal intensity foci within the cerebrum and cerebellum. Differential considerations include amyloid angiopathy versus sequelae of hypertensive encephalopathy. 4. Sinus and mastoid disease. Dictated by: Carmen Rendon M.D. on 04/03/2025 at 12:55 Approved by: Carmen Rendon M.D. on 04/03/2025 at 12:57
== END ==
PROVIDERS: PCP Internal Medicine; Referring Provider Psychiatry & Neurology Neurology; Visit Provider Psychiatry & Neurology Neurology
DX: G43.701 Chronic migraine without aura, not intractable, with status migrainosus (principal); J32.8 Other chronic sinusitis
CPT/HCPCS: 70553; A9579